=== PATIENT | female | born 1955 | race Caucasian/White ===

== ENCOUNTER 2021-07-10 09:34 | Inpatient (IN) | payer OTHER, SELFPAY ==
[2021-07-10] VITALS (8 sets, daily range): BP systolic 159–182; BP diastolic 71–98; PULSE 98–113; RESP 16–20; TEMP 36.2–38.2; O2SAT 93–99; BMI 45.6
--- NOTE | ~2021-07-10 | US_ITS ---
EXAMINATION: US ABDOMEN LIMITED CLINICAL INFORMATION: Right upper quadrant pain. Elevated white blood cell count.. COMPARISON: CT of the abdomen and pelvis September 2017 TECHNIQUE: Real-time imaging of the right upper quadrant abdominal viscera. Exam is very limited. FINDINGS: PANCREAS: Not well visualized. LIVER: Not well visualized. Liver echotexture is increased. GALLBLADDER: The gallbladder is not well visualized. There are gallstones in the gallbladder. The gallbladder wall appears thickened and edematous measuring up to 1.2 cm. There may be a small amount of pericholecystic fluid. The instructional technologist reports the patient is tender over the gallbladder. COMMON BILE DUCT: Not well visualized. RIGHT KIDNEY: Normal. No hydronephrosis. No renal calculi or focal parenchymal lesions. The kidney measures 10.1 cm in maximum dimension. FREE FLUID: None. US/US abdomen limited IMPRESSION: Very limited exam. Gallstones, thickened edematous gallbladder wall and question pericholecystic fluid. The instructional technologist describes the patient is tender over the gallbladder. Ultrasound appearance is concerning for acute cholecystitis. Echogenic liver.
--- NOTE | ~2021-07-10 | CT_ITS ---
EXAMINATION: CT ABDOMEN AND PELVIS WITH CONTRAST CLINICAL INFORMATION: Obstructive LFTs. COMPARISON: Ultrasound abdomen 07/10/2021 TECHNIQUE: Multidetector volumetric images were obtained from the superior aspect of the liver through the pubic symphysis following administration 85 mL of Omnipaque 350 intravenous contrast. Sagittal and coronal reformatted images were obtained on the technologist's workstation. Oral contrast: No This CT examination was performed using dose optimization techniques as appropriate, variously including the following: *Automated exposure control *Adjustment of mA and/or kV according to patient size (this includes techniques or standardized protocols for targeted exams where dose is matched to indication/reason for exam; i.e. extremities or head) *Use of iterative reconstruction technique DLP: 924 mGy-cm FINDINGS: LUNG BASES: The heart size is normal. The lung bases are clear. LIVER, GALLBLADDER, AND BILIARY TREE: The liver is normal in size, shape, and diffuse hypoattenuation. There is punctate calcification right hepatic lobe axial image 8/3. No focal hepatic lesion or biliary ductal dilatation is present. The gallbladder is distended with with slightly radiopaque structure seen in the dependent portion of gallbladder likely small stones. There is pericholecystic fat stranding, suspicious for acute dilated cystitis. PANCREAS: Unremarkable. SPLEEN: Unremarkable. ADRENAL GLANDS: Unremarkable. KIDNEYS AND URETERS: The kidneys are normal in size, shape, and attenuation. No hydronephrosis, hydroureter, or calculi seen. No perinephric stranding. BLADDER: Unremarkable. GASTROINTESTINAL TRACT: There is scattered stool and gas seen throughout the colon without distention. The small bowel loops are normal caliber. Appendix is not seen well. The stomach is nondistended and appears unremarkable. No free air or free fluid seen. ABDOMINAL WALL: No significant hernia is appreciated. LYMPH NODES: Normal. VASCULAR: Unremarkable. PELVIC VISCERA: There is no free fluid. The uterus is likely surgically absent are not visualized. OSSEOUS STRUCTURES: No lytic or sclerotic process seen. There is mild ventral spondylosis L3-L4, L4-L5 and L5-S1 disc levels. There is moderate ventral spondylosis lower dorsal spine. CT/CT abdomen pelvis w con IMPRESSION: Diffuse hepatic steatosis without focal lesion. There is punctate calcification along the dome of right hepatic lobe. Diffuse gallbladder wall thickening with slight hyperdense dependent gallstones and moderate periapical gallbladder fat stranding suggestive of acute cholecystitis. Recommend clinical correlation. Gallstones were noted on earlier ultrasound 07/10/2021 and acute cholecystitis was suspected.
--- NOTE | ~2021-07-10 | MR_ITS ---
EXAMINATION: MR ABDOMEN WITHOUT CONTRAST CLINICAL INFORMATION: Abnormal liver function tests COMPARISON: None. TECHNIQUE: MR abdomen is performed without gadolinium contrast. MRCP sequences were also performed. FINDINGS: LUNG BASES: The visualized lung bases are unremarkable. LIVER, GALLBLADDER, AND BILIARY TREE: There is fatty infiltration of the liver. No focal liver lesion is seen. The gallbladder is slightly dilated measuring 5 x 5 x 10 cm. There are gallstones. Largest stone measures 2.5 x 3 cm. The gallbladder wall is thickened and edematous. There is a small amount of pericholecystic fluid. There is also fat stranding of the fat surrounding the gallbladder. There is no intra or extrahepatic biliary duct dilatation. The common bile duct measures 4 mm. No common bile duct stone is seen. There may be trace ascites around the liver. PANCREAS: Unremarkable. SPLEEN: Unremarkable. ADRENAL GLANDS: Unremarkable. KIDNEYS AND URETERS: The kidneys are normal in size and shape. No hydronephrosis. No perinephric stranding. GASTROINTESTINAL TRACT: No bowel obstruction. No ascites or fluid collection. ABDOMINAL WALL: No significant hernia is appreciated. LYMPH NODES: No lymphadenopathy. VASCULAR: Unremarkable. OSSEOUS STRUCTURES: There is degenerative disc disease of the lower lumbar spine. Marrow signal is otherwise normal. MR/MR MRCP IMPRESSION: Distended gallbladder and gallstones. Gallbladder wall thickening and edema. Small amount of pericholecystic fluid. Stranding of the fat surrounding the gallbladder. MR appearance suggestive of acute cholecystitis. Normal caliber intrahepatic and extrahepatic bile ducts. No common bile duct stone seen. Fatty infiltration of the liver.
[2021-07-10 10:05] LABS: Basophils Percent Auto 0.1 % (0-2); Hematocrit 47.5 % (37-47); Hemoglobin 16.2 g/dl (12.0-16.0); Imm Gran Abs Auto 0.13 X10*3/uL (0.00-0.03); Imm Gran Pct Auto 0.6 % (0.0-0.4); Lymphocytes Percent Auto 4.7 % (20-40); Mean Corpuscular HGB Conc 34.1 g/dl (31.0-35.0); Mean Corpuscular Hemoglobin 27.3 pg (27.0-33.0); Mean Corpuscular Volume 80.1 fL (80-98); Mean Platelet Volume 9.5 fL (9.4-12.3); Monocytes Absolute Auto 0.9 X10*3/uL (0.1-1.2); Monocytes Percent Auto 4.5 % (2-11); Neutrophils Absolute Auto 18.3 X10*3/uL (2.0-8.3); Neutrophils Percent Auto 90.1 % (45-73); Platelet Count 345 X10*3/uL (160-400); Red Blood Count 5.93 X10*6/uL (4.20-5.50); Red Cell Distribution Width 12.7 % (11.0-16.0); SCAN SMEAR FLAG 1; White Blood Count 20.3 X10*3/uL (4.8-10.8)
[2021-07-10 10:06] LABS: MANUAL DIFF FLAG NO
[2021-07-10 10:18] LABS: Anion Gap 15 (12-20); Blood Urea Nitrogen 9 mg/dL (9-16); Calcium 9.1 mg/dL (8.4-10.2); Carbon Dioxide 25 mmol/L (22-29); Chloride 99 mmol/L (96-108); Creatinine Clr Calc Pharmacy 85.3; Estimated Glomerular Filt Rate > 60; Glucose Random 320 mg/dL (60-115); Sodium 135 mmol/L (135-145)
[2021-07-10 10:19] LABS: Alanine Aminotransferase 48 U/L (0-31); Albumin Level 4.2 g/dL (3.5-5.0); Alkaline Phosphatase 149 U/L (39-117); Aspartate Amino Transferase 31 U/L (5-31); Bilirubin Direct 0.9 mg/dL (0.0-0.5); Lipase 18 U/L (8-78); Total Protein 7.7 g/dL (6.5-8.0)
--- NOTE | 2021-07-10 11:40 | ED.ABDPAIN ---
HPI - Abdominal Pain General Chief Complaint: Abdominal Pain Stated Complaint: abd pain Time Seen by Provider: 07/10/21 11:40 Source: patient Mode of arrival: ambulatory Limitations: no limitations History of Present Illness HPI narrative: After eating pizza on Friday the patient has had umbilical pain. Patient with nausea. No diarrhea. Patient still has her gallbladder, had a hysterectomy many years ago. Patient feels a constant pain. No fever MD elicited complaint: abdominal pain Onset (ago): day(s) Pain Consistency: constant Location: periumbilical Severity: mild Quality: dull Radiation: none Exacerbating factors: nothing Relieving factors: nothing Associated symptoms: nausea Related Data Allergies Allergy/AdvReac Type Severity Reaction Status Date / Time No Known Allergies Allergy Unverified 07/20/20 16:29 [No Known Allergies*] Review of Systems Constitutional: Reports no additional constitutional complaints Eyes: Reports no additional eye complaints Denies dizziness Cardiovascular: Reports no additional cardiovascular complaints Respiratory: Reports as per HPI Gastrointestinal: Reports no additional gastrointestinal complaints Genitourinary: Reports no additional female genitourinary complaints Musculoskeletal: Reports no additional musculoskeletal complaints Skin/Breast: Denies rash Reports system reviewed and no additional complaints, except as documented, Denies dizziness and Denies Sensory deficit (Neuro) Psychiatric: Denies anxiety Physical Exam Vital Signs: Vital Signs: Last Vital Signs Temp 99.4 F 07/10/21 11:52 Pulse 103 H 07/10/21 11:52 Resp 20 07/10/21 11:52 BP 175/98 H 07/10/21 11:52 Pulse Ox 98 07/10/21 11:52 Body Mass Index 45.6 Const: General: healthy appearing Nutritional Appearance: obese Orientation/consciousness: oriented to person and patient oriented x3 Limitations: no limitations HENMT: Head: Yes normal to inspection Ears: external ears normal General nose exam: Normal external nose present Mouth: Normal oral and palatal mucosa present and oropharynx normal Throat: Yes posterior oropharynx normal Eyes: General: appearance normal, both eyes and all related structures Neck: Other: supple Neck: Yes normal visual inspection Chest: Chest palpation & inspection: normal inspection of the chest Resp: Auscultation: clear to auscultation bilaterally Cardio: Jugular venous distension: no JVD Rate: regular rate Rhythm: regular rhythm Heart sounds: S1 normal heart sound present and S2 normal heart sound present GI: Other: lower abdomen scar, right upper quadrant pain with guarding Auscultation: normal bowel sounds : General: Yes no CVA tenderness Back/Spine/Pelvis: Back: no CVA tenderness Skin: General skin exam: no rashes or lesions noted Neuro: General: oriented to person and patient oriented x3 Cranial nerves: Yes CN's II-XII intact bilaterally Motor exam (neuro): 5/5 motor strength present throughout Sensory Exam: No Sensory deficit (Neuro) Extrem: General: Yes normal to inspection Psych: Appearance: grossly normal Course Reevaluation(s) Reevaluation #1: unofficial bedside ultrasound reveals large stone. will obtain US and start abx for cholecystitis. With abnorma LFTs WBC 20 K will start ceftriaxone Time: 11:58 Reevaluation #2: Ultrasound shows acute cholecystitis will consult with Dr. Pan and admit Time: 13:20 MDM - Abdominal Pain Lab Data Result diagrams: 07/10/21 09:55 07/10/21 09:55 Labs: Lab Results 07/10/21 07/10/21 07/10/21 Range/Units 09:55 09:55 09:55 WBC 20.3 H (4.8-10.8) X10*3/uL RBC 5.93 H (4.20-5.50) X10*6/uL Hgb 16.2 H (12.0-16.0) g/dl Hct 47.5 H (37-47) % MCV 80.1 (80-98) fL MCH 27.3 (27.0-33.0) pg MCHC 34.1 (31.0-35.0) g/dl RDW 12.7 (11.0-16.0) % Plt Count 345 (160-400) X10*3/uL MPV 9.5 (9.4-12.3) fL Immature Gran % (Auto) 0.6 H (0.0-0.4) % Neut % (Auto) 90.1 H (45-73) % Lymph % (Auto) 4.7 L (20-40) % [place] % (Auto) 4.5 (2-11) % Eos % (Auto) 0.0 (0-4) % Baso % (Auto) 0.1 (0-2) % Lymph # (Auto) 1.0 L (1.2-4.9) X10*3/uL [place] # (Auto) 0.9 (0.1-1.2) X10*3/uL Eos # (Auto) 0.0 (0.0-0.4) X10*3/uL Baso # (Auto) 0.0 (0.0-0.2) X10*3/uL Abs Immat Gran (auto) 0.13 H (0.00-0.03) X10*3/uL Absolute Neuts (auto) 18.3 H (2.0-8.3) X10*3/uL Absolute Nucleated RBC 0.000 (0.0-0.012) X10*3/uL Nucleated RBC % (auto) 0.0 (0.0-0.2) /100WBC Sodium 135 (135-145) mmol/L Potassium 4.0 (3.3-5.1) mmol/L Chloride 99 (96-108) mmol/L Carbon Dioxide 25 (22-29) mmol/L Anion Gap 15 (12-20) BUN 9 (9-16) mg/dL Creatinine 0.83 (0.5-1.4) mg/dL Estim Creat Clear Calc 85.3 Estimated GFR > 60 Random Glucose 320 H (60-115) mg/dL Lactic Acid (0.5-2.0) mmol/L Calcium 9.1 (8.4-10.2) mg/dL Total Bilirubin 2.0 H (0.0-1.0) mg/dL Direct Bilirubin 0.9 H (0.0-0.5) mg/dL AST 31 (5-31) U/L ALT 48 H (0-31) U/L Alkaline Phosphatase 149 H (39-117) U/L Total Protein 7.7 (6.5-8.0) g/dL Albumin 4.2 (3.5-5.0) g/dL Lipase 18 (8-78) U/L COVID-19 ([facility]) (Negative) COVID-19 Clin Com 07/10/21 07/10/21 Range/Units 12:05 12:54 WBC (4.8-10.8) X10*3/uL RBC (4.20-5.50) X10*6/uL Hgb (12.0-16.0) g/dl Hct (37-47) % MCV (80-98) fL MCH (27.0-33.0) pg MCHC (31.0-35.0) g/dl RDW (11.0-16.0) % Plt Count (160-400) X10*3/uL MPV (9.4-12.3) fL Immature Gran % (Auto) (0.0-0.4) % Neut % (Auto) (45-73) % Lymph % (Auto) (20-40) % [place] % (Auto) (2-11) % Eos % (Auto) (0-4) % Baso % (Auto) (0-2) % Lymph # (Auto) (1.2-4.9) X10*3/uL [place] # (Auto) (0.1-1.2) X10*3/uL Eos # (Auto) (0.0-0.4) X10*3/uL Baso # (Auto) (0.0-0.2) X10*3/uL Abs Immat Gran (auto) (0.00-0.03) X10*3/uL Absolute Neuts (auto) (2.0-8.3) X10*3/uL Absolute Nucleated RBC (0.0-0.012) X10*3/uL Nucleated RBC % (auto) (0.0-0.2) /100WBC Sodium (135-145) mmol/L Potassium (3.3-5.1) mmol/L Chloride (96-108) mmol/L Carbon Dioxide (22-29) mmol/L Anion Gap (12-20) BUN (9-16) mg/dL Creatinine (0.5-1.4) mg/dL Estim Creat Clear Calc Estimated GFR Random Glucose (60-115) mg/dL Lactic Acid 1.6 (0.5-2.0) mmol/L Calcium (8.4-10.2) mg/dL Total Bilirubin (0.0-1.0) mg/dL Direct Bilirubin (0.0-0.5) mg/dL AST (5-31) U/L ALT (0-31) U/L Alkaline Phosphatase (39-117) U/L Total Protein (6.5-8.0) g/dL Albumin (3.5-5.0) g/dL Lipase (8-78) U/L COVID-19 ([facility]) Negative (Negative) COVID-19 Clin Com See Note Discharge Plan Discharge Patient Disposition: Admitted As [facility]patient [facility] Past Medical History Medical History Breast cancer HTN (hypertension) Social History Social History Smoked in Last 30 Days: No Use of substances other than those prescribed or required for medical reasons: No Advance Directives: No Advance Directives Information Provided: No
[2021-07-10] MEDS: 0.9 % Sodium Chloride 1,000 ML 999 ML IVCONT ×2 (12:05→12:46)
[2021-07-10 12:23] LABS: Lactic Acid 1.6 mmol/L (0.5-2.0)
[2021-07-10] MEDS: cefTRIAXone sodium 2 GM in 0.9 % Sodium Chloride 50 ML IV (12:46)
[2021-07-10 13:13] LABS: COVID-19 Test Negative (Negative); IDNOW Serial# 08D9AD1C
[2021-07-10] MEDS: iohexoL 350 MG/ML 100 ML INFUS..BTL 85 ML IV (14:10)
--- NOTE | 2021-07-10 14:50 | PM.HPGS ---
History of Present Illness History of Present Illness Date of Service: 07/12/21 Chief complaint: Acute cholecystitis Narrative: Libertad Chávez is a 66 year old female with morbid obesity, prediabetes, who came to the emergency room today because abdominal pain. She says this started yesterday around 4:30 in the morning which is about 36 hours ago. She describes this mostly in the mid part her abdomen but now, she says she is tender on the right upper quadrant. She says that the pain had been persistent since yesterday showed she decided to come to the emergency room. She denies any fever or chills. She does describe a little bit of nausea today. She denies any vomiting. She does not recall having similar episodes in the past. Her only other main complaint is her chronic knee pain, right more than the left because of her arthritis. She has difficulty walking because of this and uses a cane. Review of Systems Constitutional: Constitutional: Denies chills and Denies fever(s) Cardiovascular: Cardiovascular: Denies chest pain, Denies dyspnea and Denies dyspnea on exertion Respiratory: Respiratory: Denies cough, Denies dyspnea and Denies dyspnea on exertion Gastrointestinal: Gastrointestinal: Denies hematochezia and Denies change in bowel habits Genitourinary: Genitourinary: Denies hematuria Musculoskeletal: Musculoskeletal: Denies back pain and Denies limited range of motion Neurologic: Denies focal weakness and Denies convulsions Psychiatric: Psychiatric: Denies depression and Denies mood swings PMFSH Past Medical History Medical History (Updated 07/10/21 @ 16:51 by Amberly Rodney NP) Breast cancer HTN (hypertension) Surgical History Surgical History (Updated 07/12/21 @ 08:07 by Elma Miramontes PA-C) H/O lumpectomy Social History Social History Household Members: Spouse Housing: House Do you presently have visiting nurse or other home services: No Patient Tobacco Use Status: Never used Tobacco Smoked in Last 30 Days: No Use of substances other than those prescribed or required for medical reasons: No Currently Displaying Signs/Symptoms of Drug Intoxication Withdrawal: No Have you been hit, kicked, punched, or otherwise hurt by someone within the past year? If so, by whom?: No Do you feel safe in your current relationship?: Yes Is there a partner from a previous relationship who is making you feel unsafe now?: No Are you made to feel afraid or neglected: No Are you DNR?: No Advance Directives: No Advance Directives Information Provided: No Do you have thoughts of harming others: None Do you have a plan to hurt others: No Plan Recently lost weight without trying: No Eating poorly because of decreased appetite: No Nutrition Risks: No Nutritional Risk Patient : No : No Poor oral hygiene: No service: No Current occupational status: employed Meds Allergies Allergy/AdvReac Type Severity Reaction Status Date / Time No Known Allergies Allergy Unverified 07/20/20 16:29 [No Known Allergies*] Home Medications Medication Instructions Recorded Confirmed Last Taken Type acetaminophen 325 mg tablet 650 mg PO Q4H PRN 07/10/21 07/10/21 Unknown History anastrozole 1 mg tablet 1 tab PO DAILY 07/10/21 07/10/21 07/09/21 History Physical Exam Vital Signs: Vital Signs: Last Vital Signs Temp 99.0 F 07/10/21 14:14 Pulse 102 H 07/10/21 14:14 Resp 18 07/10/21 14:14 BP 164/78 H 07/10/21 14:14 Pulse Ox 96 07/10/21 14:14 Body Mass Index 45.6 Const: Other: Morbidly obese General: comfortable and no acute distress Orientation/consciousness: patient oriented x3 Neck: Neck: Yes no lymphadenopathy Resp: Auscultation: clear to auscultation bilaterally Cardio: Rhythm: regular rhythm GI: Other: Some tenderness on the right upper quadrant, no guarding or rebound Palpation (GI): Soft to palpation, Tenderness to palpation present (GI) and no guarding Neuro: General: patient oriented x3 Results Results Labs: Short CBC 07/10/21 Range/Units 09:55 WBC 20.3 H (4.8-10.8) X10*3/uL Hgb 16.2 H (12.0-16.0) g/dl Hct 47.5 H (37-47) % Plt Count 345 (160-400) X10*3/uL BMP 07/10/21 09:55 Sodium 135 Potassium 4.0 Chloride 99 Carbon Dioxide 25 BUN 9 Creatinine 0.83 Calcium 9.1 Liver Function 07/10/21 Range/Units 09:55 Total Bilirubin 2.0 H (0.0-1.0) mg/dL Direct Bilirubin 0.9 H (0.0-0.5) mg/dL AST 31 (5-31) U/L ALT 48 H (0-31) U/L Alkaline Phosphatase 149 H (39-117) U/L Albumin 4.2 (3.5-5.0) g/dL Abdomen CT scan report/results: report reviewed and image reviewed CT scan - pelvis: report reviewed and image reviewed Abdominal ultrasound report/results: report reviewed and image reviewed Assessment and Plan (1) Acute cholecystitis: Status: Acute She has tenderness on the right upper quadrant, with imaging study showing acute calculous cholecystitis on both her ultrasound and CAT scan. She has leukocytosis as well. I will start her on IV antibiotics. She will be hydrated as well with IV fluids. I told her that we will plan on doing cholecystectomy. I explained to the technique of laparoscopic cholecystectomy and possible open cholecystectomy. I had a long discussion with her with regards to the risks including but not limited to bleeding, infections, injury to the bowel, liver, bile duct, bile leak, retained stones, as well as the benefits and alternatives. She had does understand that be in view of her comorbidities including obesity, good blood sugars, hypertension, she may have higher perioperative risks than average. We may be able to proceed with cholecystectomy tomorrow. She has elevated glucose and she admits to being a prediabetic. However, she is not on any glucose lowering agents. I am going to consult the hospitalist service in view of her medical problems. Quality Stroke Does the patient have a stroke diagnosis?: No VTE Prior VTE?: No VTE Risk Level:: Medical - moderate - high VTE Device Contraindication: N/A - Device Ordered VTE Drug Contraindication: N/A - Med Ordered Procedures Date of Service Date of Service: 07/10/21
--- NOTE | 2021-07-10 15:18 | P.CONIM_ITS ---
History of Present Illness Data of Consult Service Date: 07/10/21 <Amberly Rodney NP - Last Filed: 07/10/21 16:52> Requesting physician: Ziggy Pan <Amberly Rodney NP - Last Filed: 07/10/21 16:52> Primary Care Provider: Avani Ledesma NP <Amberly Rodney NP - Last Filed: 07/10/21 16:52> HPI Reason for consult: medical management <Amberly Rodney NP - Last Filed: 07/10/21 16:52> 66-year-old female admitted by General surgery due to abdominal pain that started on Friday. She denied nausea, vomiting, diarrhea. She reported a pain in the right upper quadrant. She denied fever, chills. Abdominal and pelvic CT showed diffuse gallbladder with wall thickening with slight hyperdense dependent gallstones. She was admitted by General surgery and is preop for coli cystec kay. Her vital signs are stable though her blood pressure was mildly elevated. White blood cell count elevated at 20.3, hemoglobin 16.2, hematocrit 47.5, bilirubin 2.0, glucose 320. medical consultation was placed for medical management. <Amberly Rodney NP - Last Filed: 07/10/21 16:52> Review of Systems Review of Systems: Denies any recent fever chills or decrease in appetite respiratory denies any shortness of breath coverage production cardiovascular is adjustment of any PND or edema gastrointestinal See HPI genitourinary denies any dysuria frequency or hematuria musculoskeletal denies any joint pain or swelling neuropsych denies any weakness or seizures all other systems reviewed are negative <Amberly Rodney NP - Last Filed: 07/10/21 16:52> [facility] Medical History: Medical History (Updated 07/10/21 @ 16:51 by Amberly Rodney NP) Breast cancer HTN (hypertension) <Amberly Rodney NP - Last Filed: 07/10/21 16:52> Surgical History: Surgical History (Updated 07/10/21 @ 16:14 by Ziggy Pan MD) H/O lumpectomy <Amberly Rodney NP - Last Filed: 07/10/21 16:52> Social History: Social History Household Members: Spouse Housing: House Do you presently have visiting nurse or other home services: No Patient Tobacco Use Status: Never used Tobacco Smoked in Last 30 Days: No Use of substances other than those prescribed or required for medical reasons: No Currently Displaying Signs/Symptoms of Drug Intoxication Withdrawal: No Have you been hit, kicked, punched, or otherwise hurt by someone within the past year? If so, by whom?: No Do you feel safe in your current relationship?: Yes Is there a partner from a previous relationship who is making you feel unsafe now?: No Are you made to feel afraid or neglected: No Are you DNR?: No Advance Directives: No Advance Directives Information Provided: No Do you have thoughts of harming others: None Do you have a plan to hurt others: No Plan Recently lost weight without trying: No Eating poorly because of decreased appetite: No Nutrition Risks: No Nutritional Risk Patient : No : No Poor oral hygiene: No service: No Current occupational status: employed <Amberly Rodney NP - Last Filed: 07/10/21 16:52> Meds Allergies/Adverse reactions: Allergies Allergy/AdvReac Type Severity Reaction Status Date / Time No Known Allergies Allergy Unverified 07/20/20 16:29 [No Known Allergies*] <Amberly Rodney NP - Last Filed: 07/10/21 16:52> Active Medications: Current Medications Generic Name Dose Route Start Last Admin Trade Name Freq PRN Reason Stop Dose Admin Acetaminophen 650 mg 07/10/21 15:00 Acetaminophen Supp 650 Mg Supp.Rect MT Q6H PRN Fever >100.4 Sodium Chloride 1,000 mls @ 100 mls/hr 07/10/21 15:00 Ns IVCONT .Q10H VIVIANE Piperacillin Sod/Tazobactam 50 mls @ 100 mls/hr 07/10/21 15:00 Sod 3.375 gm/ Sodium Chloride IV Q6H VIVIANE Lisinopril 10 mg 07/11/21 09:00 Lisinopril 10 Mg Tablet PO DAILY VIVIANE Protocol Morphine Sulfate 3 mg 07/10/21 15:00 Morphine Sulfate 4 Mg/Ml Cartridge IVPUSH Q4H PRN Pain, Severe (Pain Scale 7-10) Protocol Ondansetron HCl 4 mg 07/10/21 15:05 Ondansetron Hcl 4 Mg/2 Ml Vial IVPUSH Q8H PRN nausea Sodium Chloride 3 ml 07/10/21 16:00 0.9 % Sodium Chloride Flush 3 Ml Syringe IVFLUSH QSSDFT [facility] Sodium Chloride 3 ml 07/10/21 16:00 0.9 % Sodium Chloride Flush 3 Ml Syringe IVFLUSH QSSDFT [facility] <Amberly Rodney NP - Last Filed: 07/10/21 16:52> Home medications: Home Medications Medication Instructions Recorded Confirmed Last Taken Type acetaminophen 325 mg tablet 650 mg PO Q4H PRN 07/10/21 07/10/21 Unknown History anastrozole 1 mg tablet 1 tab PO DAILY 07/10/21 07/10/21 07/09/21 History <Amberly Rodney NP - Last Filed: 07/10/21 16:52> Physical Exam Vital Signs and Narrative: Vital Signs: Last Vital Signs Temp 99.0 F 07/10/21 14:14 Pulse 102 H 07/10/21 14:14 Resp 18 07/10/21 14:14 BP 164/78 H 07/10/21 14:14 Pulse Ox 96 07/10/21 14:14 Body Mass Index 45.6 <Amberly Rodney NP - Last Filed: 07/10/21 16:52> Appearing in no acute distress head is normocephalic atraumatic eyes pupils are PERRLA sclera is anicteric mouth throat mucous membranes are intact and moist neck is supple no lymphadenopathy, no JVD noted lung sounds are clear to auscultation heart regular rate rhythm, clear S1, S2 positive bowel sounds, abdomen is soft, right upper quadrant tenderness neuro patient is alert x3, no focal deficits <Amberly Rodney NP - Last Filed: 07/10/21 16:52> Results Labs CBC and Chem 7: : 07/11/21 06:00 07/11/21 06:00 <Amberly Rodney NP - Last Filed: 07/10/21 16:52> Labs: Laboratory Results - last 24 hr 07/10/21 07/10/21 07/10/21 09:55 09:55 09:55 MCV 80.1 MCH 27.3 MCHC 34.1 RDW 12.7 Plt Count 345 MPV 9.5 Immature Gran % (Auto) 0.6 H Neut % (Auto) 90.1 H Lymph % (Auto) 4.7 L [place] % (Auto) 4.5 Eos % (Auto) 0.0 Baso % (Auto) 0.1 Lymph # (Auto) 1.0 L [place] # (Auto) 0.9 Eos # (Auto) 0.0 Baso # (Auto) 0.0 Abs Immat Gran (auto) 0.13 H Absolute Neuts (auto) 18.3 H Absolute Nucleated RBC 0.000 Nucleated RBC % (auto) 0.0 Anion Gap 15 Estim Creat Clear Calc 85.3 Estimated GFR > 60 Random Glucose 320 H Lactic Acid Calcium 9.1 Total Bilirubin 2.0 H Direct Bilirubin 0.9 H AST 31 ALT 48 H Alkaline Phosphatase 149 H Total Protein 7.7 Albumin 4.2 Lipase 18 COVID-19 ([facility]) COVID-19 Clin Com 07/10/21 07/10/21 12:05 12:54 MCV MCH MCHC RDW Plt Count MPV Immature Gran % (Auto) Neut % (Auto) Lymph % (Auto) [place] % (Auto) Eos % (Auto) Baso % (Auto) Lymph # (Auto) [place] # (Auto) Eos # (Auto) Baso # (Auto) Abs Immat Gran (auto) Absolute Neuts (auto) Absolute Nucleated RBC Nucleated RBC % (auto) Anion Gap Estim Creat Clear Calc Estimated GFR Random Glucose Lactic Acid 1.6 Calcium Total Bilirubin Direct Bilirubin AST ALT Alkaline Phosphatase Total Protein Albumin Lipase COVID-19 ([facility]) Negative COVID-19 Clin Com See Note <Amberly Rodney NP - Last Filed: 07/10/21 16:52> Imaging Radiologist's Impressions: Impressions Abdomen Ultrasound 07/10/21 11:54 IMPRESSION: Very limited exam. Gallstones, thickened edematous gallbladder wall and question pericholecystic fluid. The manufacturing engineering technologist describes the patient is tender over the gallbladder. Ultrasound appearance is concerning for acute cholecystitis. Echogenic liver. Abdomen/Pelvis CT 07/10/21 13:32 IMPRESSION: Diffuse hepatic steatosis without focal lesion. There is punctate calcification along the dome of right hepatic lobe. Diffuse gallbladder wall thickening with slight hyperdense dependent gallstones and moderate periapical gallbladder fat stranding suggestive of acute cholecystitis. Recommend clinical correlation. Gallstones were noted on earlier ultrasound 07/10/2021 and acute cholecystitis was suspected. <Amberly Rodney NP - Last Filed: 07/10/21 16:52> Assessment and Plan (1) Acute cholecystitis: Status: Acute <Amberly Rodney NP - Last Filed: 07/10/21 16:52> 66-year-old woman admitted by General surgery for acute cholec ystitis. Acute cholecystitis. Management per surgical team Pain management Leukocytosis. Secondary to acute cholecystitis On Zosyn Elevated blood sugar reading. Denies history of diabetes. Check A1c Sliding scale Elevated blood pressure, patient reports hypertension Appears to not be taking any medication currently Follow closely may need to add antihypertensive agent if blood pressure remains elevated Elevated hemoglobin and hematocrit. Likely related to dehydration IV fluids Follow CBC DVT prophylaxis with mechanical compression boots Attending Dr. Sanford <Amberly Rodney NP - Last Filed: 07/10/21 16:52>
--- NOTE | 2021-07-10 16:10 | PHA.MEDREC ---
Pharmacy Consult ? Medication Reconciliation Pharmacy has completed the medication reconciliation. spoke with patient in ED
[2021-07-10] MEDS: Piperacillin Sodium/Tazobactam 3.375 GM in 0.9 % Sodium Chloride 50 ML IV ×2 (17:03→20:24)
[2021-07-10] MEDS: 0.9 % Sodium Chloride 1,000 ML 100 ML IVCONT (17:03)
[2021-07-10] MEDS: Acetaminophen 325 MG TABLET 650 MG PO (17:22)
[2021-07-10 17:50] LABS: Glucose, Whole Blood 268 mg/dL (60-115)
[2021-07-10] MEDS: Insulin Lispro 100 UNIT/ML 3 ML VIAL SUBCUT ×2 (18:13→20:23)
--- NOTE | 2021-07-10 18:38 | PM.EVENT ---
Event Note Date of Service: 07/11/21 Event Note: This patient is seen and examined with APC. Patient was admitted for cholecystitis , has sepsis due to cholecystitis Lab imaging, reviewed. Physical exam : Cvs: rrr, [id number] , no murmur res: clear to auscultation ,no rhonchii or wheezing abd: no rebound or guarding ,ruq pain, bs present. ext pulses present , no cyanosis neuro: axo3 , nonfocal. sepsis exam completed. assessment and plan coordinated in APCs note, Agree with the plan in addition: sepsis/cholecystis Continue IV antibiotic, lactic acid normal, blood culture pending. Elevated blood pressure reading continue to monitor-if needed may need antihypertensive medication.
[2021-07-10 20:20] LABS: Glucose, Whole Blood 301 mg/dL (60-115)
[2021-07-11] VITALS (19 sets, daily range): BP systolic 107–202; BP diastolic 65–104; PULSE 92–120; RESP 16–20; TEMP 36.2–37.9; O2SAT 93–100
[2021-07-11] MEDS: hydrALAZINE HCl 20 MG/ML VIAL 5 MG IVPUSH (00:28)
[2021-07-11] MEDS: Piperacillin Sodium/Tazobactam 3.375 GM in 0.9 % Sodium Chloride 50 ML IV ×4 (03:20→21:16)
[2021-07-11 06:14] LABS: Glucose Urine UA 250 MG/DL (NEG); Leukocyte Esterase Urine TRACE (NEG); Nitrite Urine NEG (NEG); Specific Gravity - Urine 1.025 (1.005-1.025); UACC Culture Trigger YES; Urine Blood TRACE (NEG); Urine Ketones 40 MG/DL (NEG); Urine Protein TRACE MG/DL (NEG-TRACE)
[2021-07-11 06:15] LABS: Appearance Urine CLEAR; Color Urine YELLOW
[2021-07-11 06:19] LABS: Bacteria Urine 1+ /LPF; Squamous Epithelial Cell Urine 1+ /LPF
[2021-07-11 06:30] LABS: MANUAL DIFF FLAG NO
[2021-07-11 06:51] LABS: Basophils Percent Auto 0.1 % (0-2); Eosinophils Percent Auto 0.1 % (0-4); Hematocrit 44.2 % (37-47); Hemoglobin 14.9 g/dl (12.0-16.0); Imm Gran Abs Auto 0.15 X10*3/uL (0.00-0.03); Imm Gran Pct Auto 0.8 % (0.0-0.4); Lymphocytes Absolute Auto 1.2 X10*3/uL (1.2-4.9); Lymphocytes Percent Auto 6.2 % (20-40); Mean Corpuscular HGB Conc 33.7 g/dl (31.0-35.0); Mean Corpuscular Hemoglobin 27.2 pg (27.0-33.0); Mean Corpuscular Volume 80.7 fL (80-98); Mean Platelet Volume 9.7 fL (9.4-12.3); Monocytes Absolute Auto 1.2 X10*3/uL (0.1-1.2); Monocytes Percent Auto 6.4 % (2-11); Neutrophils Absolute Auto 16.5 X10*3/uL (2.0-8.3); Neutrophils Percent Auto 86.4 % (45-73); Platelet Count 323 X10*3/uL (160-400); Red Blood Count 5.48 X10*6/uL (4.20-5.50); Red Cell Distribution Width 13.1 % (11.0-16.0); White Blood Count 19.1 X10*3/uL (4.8-10.8)
[2021-07-11 06:52] LABS: Alanine Aminotransferase 85 U/L (0-31); Albumin Level 3.4 g/dL (3.5-5.0); Alkaline Phosphatase 146 U/L (39-117); Anion Gap 16 (12-20); Aspartate Amino Transferase 59 U/L (5-31); Bilirubin Direct 1.4 mg/dL (0.0-0.5); Bilirubin Total 2.6 mg/dL (0.0-1.0); Blood Urea Nitrogen 9 mg/dL (9-16); Calcium 8.6 mg/dL (8.4-10.2); Carbon Dioxide 24 mmol/L (22-29); Chloride 101 mmol/L (96-108); Creatinine Clr Calc Pharmacy 89.6; Estimated Glomerular Filt Rate > 60; Glucose Random 271 mg/dL (60-115); Sodium 137 mmol/L (135-145); Total Protein 6.2 g/dL (6.5-8.0)
[2021-07-11 07:39] LABS: Glucose, Whole Blood 253 mg/dL (60-115)
[2021-07-11 07:48] LABS: Estimated Average Glucose 280 mg/dL; Hemoglobin A1c % 11.4 %
[2021-07-11] MEDS: lisinopriL 10 MG TABLET PO (08:04)
[2021-07-11] MEDS: Insulin Lispro 100 UNIT/ML 3 ML VIAL SUBCUT ×2 (08:05→21:13)
[2021-07-11] MEDS: 0.9 % Sodium Chloride Flush 3 ML SYRINGE IVFLUSH ×3 (08:09→18:17)
--- NOTE | 2021-07-11 08:42 | MHC.CM.PN ---
Pt lives c her spouse in their home. she reports that she is independent in her care. 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 pt's spouse can help her if she needs it and will provide transportation home at dc. she also has a daughter that lives in the area and can help her if needed. pt denies the need for vna at dc. dc plan is home no svcs. cm to cont. to follow.
--- NOTE | 2021-07-11 08:46 | PM.PNGS ---
Subjective Subjective Date of Service: 07/11/21 Interval history: She says that she feels better today although still has some pain Otherwise no events over night Physical Exam Vital Signs: Vital Signs: Last Vital Signs Temp 98.8 F 07/11/21 07:14 Pulse 112 H 07/11/21 08:04 Resp 20 07/11/21 07:14 BP 147/83 H 07/11/21 08:04 Pulse Ox 98 07/11/21 07:14 Body Mass Index 45.6 Laboratory Results WBC 19.1 X10*3/uL (4. 8-10.8) H 07/11/21 06:00 RBC 5.48 X10*6/uL (4. 20-5.50) 07/11/21 06:00 Hgb 14.9 g/dl (12.0-1 6.0) 07/11/21 06:00 Hct 44.2 % (37-47) 07/11/21 06:00 MCV 80.7 fL (80-98) 07/11/21 06:00 MCH 27.2 pg (27.0-33. 0) 07/11/21 06:00 MCHC 33.7 g/dl (31.0-3 5.0) 07/11/21 06:00 RDW 13.1 % (11.0-16.0 ) 07/11/21 06:00 Plt Count 323 X10*3/uL (160 -400) 07/11/21 06:00 MPV 9.7 fL (9.4-12.3) 07/11/21 06:00 Immature Gran % (A uto) 0.8 % (0.0-0.4) H 07/11/21 06:00 Neut % (Auto) 86.4 % (45-73) H 07/11/21 06:00 Lymph % (Auto) 6.2 % (20-40) L 07/11/21 06:00 [place] % (Auto) 6.4 % (2-11) 07/11/21 06:00 Eos % (Auto) 0.1 % (0-4) 07/11/21 06:00 Baso % (Auto) 0.1 % (0-2) 07/11/21 06:00 Lymph # (Auto) 1.2 X10*3/uL (1.2 -4.9) 07/11/21 06:00 [place] # (Auto) 1.2 X10*3/uL (0.1 -1.2) 07/11/21 06:00 Eos # (Auto) 0.0 X10*3/uL (0.0 -0.4) 07/11/21 06:00 Baso # (Auto) 0.0 X10*3/uL (0.0 -0.2) 07/11/21 06:00 Abs Immat Gran (au to) 0.15 X10*3/uL (0. 00-0.03) H 07/11/21 06:00 Absolute Neuts (au to) 16.5 X10*3/uL (2. 0-8.3) H 07/11/21 06:00 Absolute Nucleated RBC 0.000 X10*3/uL (0 .0-0.012) 07/11/21 06:00 Nucleated RBC % (a uto) 0.0 /100WBC (0.0- 0.2) 07/11/21 06:00 Sodium 137 mmol/L (135-1 45) 07/11/21 06:00 Potassium 4.0 mmol/L (3.3-5 .1) 07/11/21 06:00 Chloride 101 mmol/L (96-10 8) 07/11/21 06:00 Carbon Dioxide 24 mmol/L (22-29) 07/11/21 06:00 Anion Gap 16 (12-20) 07/11/21 06:00 BUN 9 mg/dL (9-16) 07/11/21 06:00 Creatinine 0.79 mg/dL (0.5-1 .4) 07/11/21 06:00 Estim Creat Clear Calc 89.6 07/11/21 06:00 Estimated GFR > 60 07/11/21 06:00 POC Glucose 253 mg/dL (60-115 ) H 07/11/21 07:17 Random Glucose 271 mg/dL (60-115 ) H 07/11/21 06:00 Estimat Average Gl ucose 280 mg/dL 07/10/21 09:55 Hemoglobin A1c % 11.4 % 07/10/21 09:55 Lactic Acid 1.6 mmol/L (0.5-2 .0) 07/10/21 12:05 Calcium 8.6 mg/dL (8.4-10 .2) 07/11/21 06:00 Total Bilirubin 2.6 mg/dL (0.0-1. 0) H 07/11/21 06:00 Direct Bilirubin 1.4 mg/dL (0.0-0. 5) H 07/11/21 06:00 AST 59 U/L (5-31) H 07/11/21 06:00 ALT 85 U/L (0-31) H 07/11/21 06:00 Alkaline Phosphata se 146 U/L (39-117) H 07/11/21 06:00 Total Protein 6.2 g/dL (6.5-8.0 ) L 07/11/21 06:00 Albumin 3.4 g/dL (3.5-5.0 ) L 07/11/21 06:00 Lipase 18 U/L (8-78) 07/10/21 09:55 Urine Color YELLOW 07/11/21 05:52 Urine Appearance CLEAR 07/11/21 05:52 Urine pH 6.0 (5.0-8.0) 07/11/21 05:52 Ur Specific Gravit y 1.025 (1.005-1.0 25) 07/11/21 05:52 Urine Protein TRACE MG/DL (NEG- TRACE) 07/11/21 05:52 Urine Glucose (UA) 250 MG/DL (NEG) H 07/11/21 05:52 Urine Ketones 40 MG/DL (NEG) 07/11/21 05:52 Urine Blood TRACE (NEG) 07/11/21 05:52 Urine Nitrite NEG (NEG) 07/11/21 05:52 Ur Leukocyte [place] TRACE (NEG) H 07/11/21 05:52 Urine RBC 1-4 /HPF (0) 07/11/21 05:52 Urine WBC 10-14 /HPF (0-4) H 07/11/21 05:52 Ur Squamous Epith Cells 1+ /LPF 07/11/21 05:52 Urine Bacteria 1+ /LPF 07/11/21 05:52 COVID-19 ([facility]ITO) Negative (Negati ve) 07/10/21 12:54 COVID-19 Clin Com See Note 07/10/21 12:54 Impressions Abdomen Ultrasound 07/10/21 11:54 IMPRESSION: Very limited exam. Gallstones, thickened edematous gallbladder wall and question pericholecystic fluid. The cardiac cath lab technologist describes the patient is tender over the gallbladder. Ultrasound appearance is concerning for acute cholecystitis. Echogenic liver. Abdomen/Pelvis CT 07/10/21 13:32 IMPRESSION: Diffuse hepatic steatosis without focal lesion. There is punctate calcification along the dome of right hepatic lobe. Diffuse gallbladder wall thickening with slight hyperdense dependent gallstones and moderate periapical gallbladder fat stranding suggestive of acute cholecystitis. Recommend clinical correlation. Gallstones were noted on earlier ultrasound 07/10/2021 and acute cholecystitis was suspected. Const: Other: Appears obese General: comfortable and no acute distress Resp: Effort & Inspection: normal respiratory effort Cardio: Rate: tachycardic GI: Other: Soft mild tenderness on the right upper quadrant no rebound or guarding Procedures Date of Service Date of Service: 07/11/21 Progress Note: A&P Assessment and plan (1) Acute cholecystitis: Status: Acute Assessment and Plan: Subjectively says she is better although with some pain still White count down a little bit Bilirubin elevated Will check MRI to rule out CBD stone Lactate was normal but will repeat in view of white count, tachycardia Otherwise looks comfortable Plan is laparoscopic cholecystectomy - she understands the technique of the procedure. I had long discussion with her about the risks, benefits, and alternatives. Fall Risk Details Current Medications: Current Medications Generic Name Dose Route Start Last Admin Trade Name Freq PRN Reason Stop Dose Admin Acetaminophen 650 mg 07/10/21 17:16 07/10/21 17:22 Acetaminophen 325 Mg Tablet PO 650 mg Q6H PRN Administration Fever >100.4 Dextrose 25 gm 07/10/21 15:40 Dextrose 50 % 25 Gm/50 Ml Vial IVPUSH Q15M PRN per Hypoglycemia Standing Ord. Protocol Glucose 15 gm 07/10/21 15:40 Glucose Gel 15 Gm Gel..Gram. PO Q15M PRN per Hypoglycemia Standing Ord. Protocol Sodium Chloride 1,000 mls @ 100 mls/hr 07/10/21 15:00 07/11/21 05:23 Ns IVCONT Infused .Q10H VIVIANE Infusion Piperacillin Sod/Tazobactam 50 mls @ 100 mls/hr 07/10/21 15:00 07/11/21 08:05 Sod 3.375 gm/ Sodium Chloride IV 100 mls/hr Q6H VIVIANE Administration Insulin Human Lispro 0 unit 07/10/21 16:30 07/11/21 08:05 Insulin Lispro 100 Unit/Ml 3 Ml Vial SUBCUT 6 unit QIDACHS VIVIANE Administration Protocol Lisinopril 10 mg 07/11/21 09:00 07/11/21 08:04 Lisinopril 10 Mg Tablet PO 10 mg DAILY VIVIANE Administration Protocol Morphine Sulfate 3 mg 07/10/21 15:00 Morphine Sulfate 4 Mg/Ml Cartridge IVPUSH Q4H PRN Pain, Severe (Pain Scale 7-10) Protocol Ondansetron HCl 4 mg 07/10/21 15:05 Ondansetron Hcl 4 Mg/2 Ml Vial IVPUSH Q8H PRN nausea Pharmacy Consult 1 each 07/10/21 15:44 Consult Rx Perform Med Rec MISCELLANE ONCE PRN Consult order Sodium Chloride 3 ml 07/10/21 16:00 07/11/21 08:36 0.9 % Sodium Chloride Flush 3 Ml Syringe IVFLUSH 3 ml QSHIFT [facility] Administration Sodium Chloride 3 ml 07/10/21 16:00 07/11/21 01:12 0.9 % Sodium Chloride Flush 3 Ml Syringe IVFLUSH Not Given QSHIFT [facility] Time Spent With Patient Time: Total time spent is greater than 50% in coordination of care (as documented) at patient's floor/unit and/or counseling patient: Time with patient: 25 - 35 minutes Quality Stroke Does the patient have a stroke diagnosis?: No VTE Prior VTE?: No VTE Risk Level:: Medical - moderate - high VTE Device Contraindication: N/A - Device Ordered VTE Drug Contraindication: N/A - Med Ordered
[2021-07-11 09:21] LABS: Lactic Acid 1.4 mmol/L (0.5-2.0)
--- NOTE | 2021-07-11 09:49 | P.CDIC_ITS ---
CDI Concurrent Query Service Date: 07/11/21 Documentation Clarification: Please clarify if you are treating a proba ble/suspected/likely or confirmed: Consistency of documentation within the medical record: Sepsis due to acute cholecystitis POA, treating, rule out Acute cholecystitis Other please specify if known or undetermined PLEASE DO NOT DELETE/MODIFY EXISTING CONTENT Additional information is needed in order to code to the highest accuracy and appropriate Severity of Illness (SOI). Please clarify the information noted below in your progress notes and discharge summary. Risk Factors/Clinical Indicators/Treatments Event note 07/10 - patient was admitted for cholecystitis has Sepsis due to the cholecystitis. WBC 20.3 Temp 98/100.7 IV antibiotics, IV Fluids Plan for Lap Cholecystectomy. CDS: Annie Carlson CCS, CDIS Contact Number: [phone] Please Review the information above and exercise your independent professional judgment in responding to the query. If you concur, pleas document in the PROGRESS NOTES and DISCHARGE SUMMARY. If you do not agree with the query, please document in the query above. THIS QUERY IS PART OF THE PERMANENT MEDICAL RECORD
--- NOTE | 2021-07-11 11:09 | HO.PM.IMPN ---
Subjective Subjective Date of Service: 07/11/21 Interval History: Sepsis/acute cholecystitis Review of Systems Patient says abdominal pain slightly better than before . Denies any new complaint of chest pain or shortness of breath or fever or chills or nausea or vomiting Denies any cough Denies any weakness or numbness. Physical Exam Vital Signs: Vital Signs: Last Vital Signs Temp 98.9 F 07/11/21 11:02 Pulse 117 H 07/11/21 11:02 Resp 18 07/11/21 11:02 BP 141/91 H 07/11/21 11:02 Pulse Ox 95 07/11/21 11:02 Body Mass Index 45.6 Physical exam: Constitutional: Not in acute distress but has abdominal discomfort. Cvs: rrr, [id number] , no murmur res: clear to auscultation ,no rhonchii or wheezing abd: no rebound or guarding ,ruq pain, bs present. ext pulses present , no cyanosis neuro: axo3 , nonfocal. Objective Data Active Medications Acetaminophen (Acetaminophen 325 Mg Tablet) 650 mg PO Q6H PRN PRN Reason: Fever >100.4 Last Admin: 07/10/21 17:22 Dose: 650 mg Documented by: MILLEROPEChelsea Dextrose (Dextrose 50 % 25 Gm/50 Ml Vial) 25 gm IVPUSH Q15M PRN; Protocol PRN Reason: per Hypoglycemia Standing Ord. Glucose (Glucose Gel 15 Gm Gel..Gram.) 15 gm PO Q15M PRN; Protocol PRN Reason: per Hypoglycemia Standing Ord. Sodium Chloride (Ns) 1,000 mls @ 100 mls/hr IVCONT .Q10H [facility] Last Infusion: 07/11/21 05:23 Dose: 0 mls/hr Documented by: PAVITHRA Piperacillin Sod/Tazobactam (Sod 3.375 gm/ Sodium Chloride) 50 mls @ 100 mls/hr IV Q6H [facility] Last Infusion: 07/11/21 09:32 Dose: 100 mls/hr Documented by: MAEVE Insulin Human Lispro (Insulin Lispro 100 Unit/Ml 3 Ml Vial) 0 unit SUBCUT QIDACHS [facility]; Protocol Last Admin: 07/11/21 08:05 Dose: 6 unit Documented by: ACOSTA Lisinopril (Lisinopril 10 Mg Tablet) 10 mg PO DAILY [facility]; Protocol Last Admin: 07/11/21 08:04 Dose: 10 mg Documented by: ACOSTA Morphine Sulfate (Morphine Sulfate 4 Mg/Ml Cartridge) 3 mg IVPUSH Q4H PRN; Protocol PRN Reason: Pain, Severe (Pain Scale 7-10) Ondansetron HCl (Ondansetron Hcl 4 Mg/2 Ml Vial) 4 mg IVPUSH Q8H PRN PRN Reason: nausea Pharmacy Consult (Consult Rx Perform Med Rec) 1 each MISCELLANE ONCE PRN PRN Reason: Consult order Sodium Chloride (0.9 % Sodium Chloride Flush 3 Ml Syringe) 3 ml IVFLUSH QSMSFT [facility] Last Admin: 07/11/21 08:36 Dose: 3 ml Documented by: ACOSTA Sodium Chloride (0.9 % Sodium Chloride Flush 3 Ml Syringe) [facility] Last Admin: 07/11/21 09:32 Dose: Not Given Documented by: MAEVE Non-Admin Reason: IV Running Labs CBC & Chem 7: 07/11/21 06:00 07/11/21 06:00 Labs: Laboratory Results - last 24 hr 07/10/21 07/10/21 07/10/21 09:55 12:05 12:54 MCV MCH MCHC RDW Plt Count MPV Immature Gran % (Auto) Neut % (Auto) Lymph % (Auto) [place] % (Auto) Eos % (Auto) Baso % (Auto) Lymph # (Auto) [place] # (Auto) Eos # (Auto) Baso # (Auto) Abs Immat Gran (auto) Absolute Neuts (auto) Absolute Nucleated RBC Nucleated RBC % (auto) Anion Gap Estim Creat Clear Calc Estimated GFR POC Glucose Random Glucose Estimat Average Glucose 280 Hemoglobin A1c % 11.4 Lactic Acid 1.6 Calcium Total Bilirubin Direct Bilirubin AST ALT Alkaline Phosphatase Total Protein Albumin Urine Color Urine Appearance Urine pH Ur Specific [place] Urine Protein Urine Glucose (UA) Urine Ketones Urine Blood Urine Nitrite Ur Leukocyte Esterase Urine RBC Urine WBC Ur Squamous Epith Cells Urine Bacteria COVID-19 ([facility]) Negative COVID-19 Clin Com See Note 07/10/21 07/10/21 07/11/21 17:45 20:15 05:52 MCV MCH MCHC RDW Plt Count MPV Immature Gran % (Auto) Neut % (Auto) Lymph % (Auto) [place] % (Auto) Eos % (Auto) Baso % (Auto) Lymph # (Auto) [place] # (Auto) Eos # (Auto) Baso # (Auto) Abs Immat Gran (auto) Absolute Neuts (auto) Absolute Nucleated RBC Nucleated RBC % (auto) Anion Gap Estim Creat Clear Calc Estimated GFR POC Glucose 268 H 301 H Random Glucose Estimat Average Glucose Hemoglobin A1c % Lactic Acid Calcium Total Bilirubin Direct Bilirubin AST ALT Alkaline Phosphatase Total Protein Albumin Urine Color YELLOW Urine Appearance CLEAR Urine pH 6.0 Ur Specific [place] 1.025 Urine Protein TRACE Urine Glucose (UA) 250 H Urine Ketones 40 Urine Blood TRACE Urine Nitrite NEG Ur Leukocyte Esterase TRACE H Urine RBC 1-4 Urine WBC 10-14 H Ur Squamous Epith Cells 1+ Urine Bacteria 1+ COVID-19 ([facility]) COVID-19 Vivastream 07/11/21 07/11/21 07/11/21 06:00 06:00 07:17 MCV 80.7 MCH 27.2 MCHC 33.7 RDW 13.1 Plt Count 323 MPV 9.7 Immature Gran % (Auto) 0.8 H Neut % (Auto) 86.4 H Lymph % (Auto) 6.2 L [place] % (Auto) 6.4 Eos % (Auto) 0.1 Baso % (Auto) 0.1 Lymph # (Auto) 1.2 [place] # (Auto) 1.2 Eos # (Auto) 0.0 Baso # (Auto) 0.0 Abs Immat Gran (auto) 0.15 H Absolute Neuts (auto) 16.5 H Absolute Nucleated RBC 0.000 Nucleated RBC % (auto) 0.0 Anion Gap 16 Estim Creat Clear Calc 89.6 Estimated GFR > 60 POC Glucose 253 H Random Glucose 271 H Estimat Average Glucose Hemoglobin A1c % Lactic Acid Calcium 8.6 Total Bilirubin 2.6 H Direct Bilirubin 1.4 H AST 59 H ALT 85 H Alkaline Phosphatase 146 H Total Protein 6.2 L Albumin 3.4 L Urine Color Urine Appearance Urine pH Ur Specific [place] Urine Protein Urine Glucose (UA) Urine Ketones Urine Blood Urine Nitrite Ur Leukocyte Esterase Urine RBC Urine WBC Ur Squamous Epith Cells Urine Bacteria COVID-19 ([facility]ITO) COVID-19 [facility] Com 07/11/21 08:26 MCV MCH MCHC RDW Plt Count MPV Immature Gran % (Auto) Neut % (Auto) Lymph % (Auto) [place] % (Auto) Eos % (Auto) Baso % (Auto) Lymph # (Auto) [place] # (Auto) Eos # (Auto) Baso # (Auto) Abs Immat Gran (auto) Absolute Neuts (auto) Absolute Nucleated RBC Nucleated RBC % (auto) Anion Gap Estim Creat Clear Calc Estimated GFR POC Glucose Random Glucose Estimat Average Glucose Hemoglobin A1c % Lactic Acid 1.4 Calcium Total Bilirubin Direct Bilirubin AST ALT Alkaline Phosphatase Total Protein Albumin Urine Color Urine Appearance Urine pH Ur Specific [place] Urine Protein Urine Glucose (UA) Urine Ketones Urine Blood Urine Nitrite Ur Leukocyte Esterase Urine RBC Urine WBC Ur Squamous Epith Cells Urine Bacteria COVID-19 ([facility]) COVID-19 Clin Com Assessment and Plan (1) Acute cholecystitis: Status: Acute (2) Leukocytosis (leucocytosis): Status: Acute (3) Elevated blood sugar: Status: Acute (4) Elevated blood pressure reading: Status: Acute Quality VTE VTE Risk Level:: Medical - moderate - high VTE Device Contraindication: N/A - Device Ordered VTE Drug Contraindication: N/A - Med Ordered
--- NOTE | 2021-07-11 11:15 | PM.EVENT ---
Event Note Date of Service: 07/11/21 Event Note: MRCP reviewed- no signs of any CBD stone or CBD obstruction Abnormal LFTs likely due to inflammatory changes of the gallbladder. Will proceed with a cholecystectomy, possible open cholecystectomy Patient aware and understands the technique of the procedure as well as the risks, benefits, and alternatives. She has given consent She meets criteria for sepsis with elevated heart rate, elevated WBC Lactate normal
[2021-07-11 11:17] LABS: Glucose, Whole Blood 221 mg/dL (60-115)
--- NOTE | 2021-07-11 11:32 | HO.ANESPROP2 ---
[facility] Active Problems Active Problems: All Active Problems (Updated 07/10/21 @ 16:51 by Amberly Rodney NP) Elevated blood sugar (Acute) Elevated blood pressure reading (Acute) Leukocytosis (leucocytosis) (Acute) H/O lumpectomy (Acute) Acute cholecystitis (Acute) Past Medical History Medical History (Updated 07/10/21 @ 16:51 by Amberly Rodney NP) Breast cancer HTN (hypertension) Surgical History Surgical History (Updated 07/10/21 @ 16:14 by Ziggy Pan MD) H/O lumpectomy Social History Social History Household Members: Spouse Housing: House Do you presently have visiting nurse or other home services: No Patient Tobacco Use Status: Never used Tobacco Smoked in Last 30 Days: No Use of substances other than those prescribed or required for medical reasons: No Currently Displaying Signs/Symptoms of Drug Intoxication Withdrawal: No Have you been hit, kicked, punched, or otherwise hurt by someone within the past year? If so, by whom?: No Do you feel safe in your current relationship?: Yes Is there a partner from a previous relationship who is making you feel unsafe now?: No Are you made to feel afraid or neglected: No Are you DNR?: No Advance Directives: No Advance Directives Information Provided: No Do you have thoughts of harming others: None Do you have a plan to hurt others: No Plan Recently lost weight without trying: No Eating poorly because of decreased appetite: No Nutrition Risks: No Nutritional Risk Patient : No : No Poor oral hygiene: No service: No Current occupational status: employed Meds Allergies Allergy/AdvReac Type Severity Reaction Status Date / Time No Known Allergies Allergy Unverified 07/20/20 16:29 [No Known Allergies*] Active Medications: Current Medications Generic Name Dose Route Start Last Admin Trade Name Freq PRN Reason Stop Dose Admin Acetaminophen 650 mg 07/10/21 17:16 07/10/21 17:22 Acetaminophen 325 Mg Tablet PO 650 mg Q6H PRN Administration Fever >100.4 Dextrose 25 gm 07/10/21 15:40 Dextrose 50 % 25 Gm/50 Ml Vial IVPUSH Q15M PRN per Hypoglycemia Standing Ord. Protocol Glucose 15 gm 07/10/21 15:40 Glucose Gel 15 Gm Gel..Gram. PO Q15M PRN per Hypoglycemia Standing Ord. Protocol Sodium Chloride 1,000 mls @ 100 mls/hr 07/10/21 15:00 07/11/21 05:23 Ns IVCONT Infused .Q10H [facility] Infusion Piperacillin Sod/Tazobactam 50 mls @ 100 mls/hr 07/10/21 15:00 07/11/21 09:32 Sod 3.375 gm/ Sodium Chloride IV Infused Q6H [facility] Infusion Insulin Human Lispro 0 unit 07/10/21 16:30 07/11/21 08:05 Insulin Lispro 100 Unit/Ml 3 Ml Vial SUBCUT 6 unit QIDACHS [facility] Administration Protocol Lisinopril 10 mg 07/11/21 09:00 07/11/21 08:04 Lisinopril 10 Mg Tablet PO 10 mg DAILY [facility] Administration Protocol Morphine Sulfate 3 mg 07/10/21 15:00 Morphine Sulfate 4 Mg/Ml Cartridge IVPUSH Q4H PRN Pain, Severe (Pain Scale 7-10) Protocol Ondansetron HCl 4 mg 07/10/21 15:05 Ondansetron Hcl 4 Mg/2 Ml Vial IVPUSH Q8H PRN nausea Pharmacy Consult 1 each 07/10/21 15:44 Consult Rx Perform Med Rec MISCELLANE ONCE PRN Consult order Sodium Chloride 3 ml 07/10/21 16:00 07/11/21 08:36 0.9 % Sodium Chloride Flush 3 Ml Syringe [facility] Administration Sodium Chloride 3 ml 07/10/21 16:00 07/11/21 09:32 0.9 % Sodium Chloride Flush 3 Ml Syringe IVFLUSH Not Given [facility] Home Medications Medication Instructions Recorded Confirmed Last Taken Type acetaminophen 325 mg tablet 650 mg PO Q4H PRN 07/10/21 07/10/21 Unknown History anastrozole 1 mg tablet 1 tab PO DAILY 07/10/21 07/10/21 07/09/21 History Exam Exam Date and Time: July 11, 2021 1132 Height,Weight and Vital Signs: Height 5 ft 4 in Weight 120.656 kg Last Vital Signs Temp 98.9 F 07/11/21 11:02 Pulse 117 H 07/11/21 11:02 Resp 18 07/11/21 11:02 BP 141/91 H 07/11/21 11:02 Pulse Ox 95 07/11/21 11:02 Pertinent Lab Results Pertinent Lab Results: Laboratory Tests 07/10/21 07/10/21 07/10/21 09:55 09:55 09:55 WBC 20.3 H RBC 5.93 H Hgb 16.2 H Hct 47.5 H MCV 80.1 MCH 27.3 MCHC 34.1 RDW 12.7 Plt Count 345 MPV 9.5 Immature Gran % (Auto) 0.6 H Neut % (Auto) 90.1 H Lymph % (Auto) 4.7 L [place] % (Auto) 4.5 Eos % (Auto) 0.0 Baso % (Auto) 0.1 Lymph # (Auto) 1.0 L [place] # (Auto) 0.9 Eos # (Auto) 0.0 Baso # (Auto) 0.0 Abs Immat Gran (auto) 0.13 H Absolute Neuts (auto) 18.3 H Absolute Nucleated RBC 0.000 Nucleated RBC % (auto) 0.0 Sodium 135 Potassium 4.0 Chloride 99 Carbon Dioxide 25 Anion Gap 15 BUN 9 Creatinine 0.83 Estim Creat Clear Calc 85.3 Estimated GFR > 60 POC Glucose Random Glucose 320 H Estimat Average Glucose Hemoglobin A1c % Lactic Acid Calcium 9.1 Total Bilirubin 2.0 H Direct Bilirubin 0.9 H AST 31 ALT 48 H Alkaline Phosphatase 149 H Total Protein 7.7 Albumin 4.2 Lipase 18 Urine Color Urine Appearance Urine pH Ur Specific [place] Urine Protein Urine Glucose (UA) Urine Ketones Urine Blood Urine Nitrite Ur Leukocyte Esterase Urine RBC Urine WBC Ur Squamous Epith Cells Urine Bacteria COVID-19 ([facility]) COVID-19 Clin Com 07/10/21 07/10/21 07/10/21 09:55 12:05 12:54 WBC RBC Hgb Hct MCV MCH MCHC RDW Plt Count MPV Immature Gran % (Auto) Neut % (Auto) Lymph % (Auto) [place] % (Auto) Eos % (Auto) Baso % (Auto) Lymph # (Auto) [place] # (Auto) Eos # (Auto) Baso # (Auto) Abs Immat Gran (auto) Absolute Neuts (auto) Absolute Nucleated RBC Nucleated RBC % (auto) Sodium Potassium Chloride Carbon Dioxide Anion Gap BUN Creatinine Estim Creat Clear Calc Estimated GFR POC Glucose Random Glucose Estimat Average Glucose 280 Hemoglobin A1c % 11.4 Lactic Acid 1.6 Calcium Total Bilirubin Direct Bilirubin AST ALT Alkaline Phosphatase Total Protein Albumin Lipase Urine Color Urine Appearance Urine pH Ur Specific [place] Urine Protein Urine Glucose (UA) Urine Ketones Urine Blood Urine Nitrite Ur Leukocyte Esterase Urine RBC Urine WBC Ur Squamous Epith Cells Urine Bacteria COVID-19 ([facility]) Negative COVID-19 Clin Com See Note 07/10/21 07/10/21 07/11/21 17:45 20:15 05:52 WBC RBC Hgb Hct MCV MCH MCHC RDW Plt Count MPV Immature Gran % (Auto) Neut % (Auto) Lymph % (Auto) [place] % (Auto) Eos % (Auto) Baso % (Auto) Lymph # (Auto) [place] # (Auto) Eos # (Auto) Baso # (Auto) Abs Immat Gran (auto) Absolute Neuts (auto) Absolute Nucleated RBC Nucleated RBC % (auto) Sodium Potassium Chloride Carbon Dioxide Anion Gap BUN Creatinine Estim Creat Clear Calc Estimated GFR POC Glucose 268 H 301 H Random Glucose Estimat Average Glucose Hemoglobin A1c % Lactic Acid Calcium Total Bilirubin Direct Bilirubin AST ALT Alkaline Phosphatase Total Protein Albumin Lipase Urine Color YELLOW Urine Appearance CLEAR Urine pH 6.0 Ur Specific [place] 1.025 Urine Protein TRACE Urine Glucose (UA) 250 H Urine Ketones 40 Urine Blood TRACE Urine Nitrite NEG Ur Leukocyte Esterase TRACE H Urine RBC 1-4 Urine WBC 10-14 H Ur Squamous Epith Cells 1+ Urine Bacteria 1+ COVID-19 ([facility]) COVID-19 Clin Com 07/11/21 07/11/21 07/11/21 06:00 06:00 07:17 WBC 19.1 H RBC 5.48 Hgb 14.9 Hct 44.2 MCV 80.7 MCH 27.2 MCHC 33.7 RDW 13.1 Plt Count 323 MPV 9.7 Immature Gran % (Auto) 0.8 H Neut % (Auto) 86.4 H Lymph % (Auto) 6.2 L [place] % (Auto) 6.4 Eos % (Auto) 0.1 Baso % (Auto) 0.1 Lymph # (Auto) 1.2 [place] # (Auto) 1.2 Eos # (Auto) 0.0 Baso # (Auto) 0.0 Abs Immat Gran (auto) 0.15 H Absolute Neuts (auto) 16.5 H Absolute Nucleated RBC 0.000 Nucleated RBC % (auto) 0.0 Sodium 137 Potassium 4.0 Chloride 101 Carbon Dioxide 24 Anion Gap 16 BUN 9 Creatinine 0.79 Estim Creat Clear Calc 89.6 Estimated GFR > 60 POC Glucose 253 H Random Glucose 271 H Estimat Average Glucose Hemoglobin A1c % Lactic Acid Calcium 8.6 Total Bilirubin 2.6 H Direct Bilirubin 1.4 H AST 59 H ALT 85 H Alkaline Phosphatase 146 H Total Protein 6.2 L Albumin 3.4 L Lipase Urine Color Urine Appearance Urine pH Ur Specific [place] Urine Protein Urine Glucose (UA) Urine Ketones Urine Blood Urine Nitrite Ur Leukocyte Esterase Urine RBC Urine WBC Ur Squamous Epith Cells Urine Bacteria COVID-19 ([facility]) COVID-19 Clin Com 07/11/21 07/11/21 08:26 11:13 WBC RBC Hgb Hct MCV MCH MCHC RDW Plt Count MPV Immature Gran % (Auto) Neut % (Auto) Lymph % (Auto) [place] % (Auto) Eos % (Auto) Baso % (Auto) Lymph # (Auto) [place] # (Auto) Eos # (Auto) Baso # (Auto) Abs Immat Gran (auto) Absolute Neuts (auto) Absolute Nucleated RBC Nucleated RBC % (auto) Sodium Potassium Chloride Carbon Dioxide Anion Gap BUN Creatinine Estim Creat Clear Calc Estimated GFR POC Glucose 221 H Random Glucose Estimat Average Glucose Hemoglobin A1c % Lactic Acid 1.4 Calcium Total Bilirubin Direct Bilirubin AST ALT Alkaline Phosphatase Total Protein Albumin Lipase Urine Color Urine Appearance Urine pH Ur Specific [place] Urine Protein Urine Glucose (UA) Urine Ketones Urine Blood Urine Nitrite Ur Leukocyte Esterase Urine RBC Urine WBC Ur Squamous Epith Cells Urine Bacteria COVID-19 ([facility]) COVID-19 Clin Com Airway Mallampati Class: III TM Dist: >3cm Partial: Upper and Lower
--- NOTE | 2021-07-11 13:17 | P.PNIM_ITS ---
Subjective Subjective Date of Service: 07/11/21 Interval History: the patient was seen and evaluated this morning Laying in bed, complaining of pain in right upper quadrant of her abdomen Denies any fever, chills or shortness of breath No reported other overnight events. Systemic review: No fever, chills but complaining of pain No chest pain, palpitation No shortness of breath or coughing Right upper quadrant pain with associated nausea No urinary symptoms No any rash or wounds Physical Exam Vital Signs: Vital Signs: Last Vital Signs Temp 98.9 F 07/11/21 11:02 Pulse 117 H 07/11/21 11:02 Resp 18 07/11/21 11:02 BP 141/91 H 07/11/21 11:02 Pulse Ox 95 07/11/21 11:02 Body Mass Index 45.6 Const: Other: Constitutional : Alert, oriented, obese Neck : Normal inspection, Supple Cardiovascular : RRR, S1 S2, no lower extremity edema Respiratory : Good bilateral air entry, no crackles, wheezes or rhonchi Gastrointestinal: soft, lax, decrease bowel sounds, right upper quadrant tenderness Skin : Warm, Dry Neurological : Alert & oriented x3, No focal deficit Objective Data Active Medications Acetaminophen (Acetaminophen 325 Mg Tablet) 650 mg PO Q6H PRN PRN Reason: Fever >100.4 Last Admin: 07/10/21 17:22 Dose: 650 mg Documented by: PARVIN Dextrose (Dextrose 50 % 25 Gm/50 Ml Vial) 25 gm IVPUSH Q15M PRN; Protocol PRN Reason: per Hypoglycemia Standing Ord. Fentanyl (Fentanyl Citrate/Pf 100 Mcg/2 Ml Vial) 50 mcg IVPUSH Q5M PRN; Protocol PRN Reason: Pain, Severe (Pain Scale 7-10) Glucose (Glucose Gel 15 Gm Gel..Gram.) 15 gm PO Q15M PRN; Protocol PRN Reason: per Hypoglycemia Standing Ord. Sodium Chloride (Ns) 1,000 mls @ 100 mls/hr IVCONT .Q10H [facility] Last Infusion: 07/11/21 05:23 Dose: 0 mls/hr Documented by: PAVITHAR Piperacillin Sod/Tazobactam (Sod 3.375 gm/ Sodium Chloride) 50 mls @ 100 mls/hr IV Q6H [facility] Last Infusion: 07/11/21 09:32 Dose: 100 mls/hr Documented by: MAEVE Lactated Ringer's (Lr) 1,000 mls @ 100 mls/hr IVCONT .Q10H [facility] Insulin Human Lispro (Insulin Lispro 100 Unit/Ml 3 Ml Vial) 0 unit SUBCUT QIDACHS [facility]; Protocol Last Admin: 07/11/21 08:05 Dose: 6 unit Documented by: ACOSTA Lisinopril (Lisinopril 10 Mg Tablet) 10 mg PO DAILY [facility]; Protocol Last Admin: 07/11/21 08:04 Dose: 10 mg Documented by: ACOSTA Morphine Sulfate (Morphine Sulfate 4 Mg/Ml Cartridge) 3 mg IVPUSH Q4H PRN; Protocol PRN Reason: Pain, Severe (Pain Scale 7-10) Ondansetron HCl (Ondansetron Hcl 4 Mg/2 Ml Vial) 4 mg IVPUSH Q8H PRN PRN Reason: nausea Ondansetron HCl (Ondansetron Hcl 4 Mg/2 Ml Vial) 4 mg IVPUSH ONCE PRN PRN Reason: Nausea and Vomiting Pharmacy Consult (Consult Rx Perform Med Rec) 1 each MISCELLANE ONCE PRN PRN Reason: Consult order Sodium Chloride (0.9 % Sodium Chloride Flush 3 Ml Syringe) 3 ml IVFLUSH [facility] Last Admin: 07/11/21 08:36 Dose: 3 ml Documented by: ACOSTA Sodium Chloride (0.9 % Sodium Chloride Flush 3 Ml Syringe) 3 ml IVFLUSH [facility] Last Admin: 07/11/21 09:32 Dose: Not Given Documented by: MAEVE Non-Admin Reason: IV Running Labs CBC & Chem 7: 07/11/21 06:00 07/11/21 06:00 Labs: Laboratory Results - last 24 hr 07/10/21 07/10/21 07/10/21 09:55 17:45 20:15 MCV MCH MCHC RDW Plt Count MPV Immature Gran % (Auto) Neut % (Auto) Lymph % (Auto) [place] % (Auto) Eos % (Auto) Baso % (Auto) Lymph # (Auto) [place] # (Auto) Eos # (Auto) Baso # (Auto) Abs Immat Gran (auto) Absolute Neuts (auto) Absolute Nucleated RBC Nucleated RBC % (auto) Anion Gap Estim Creat Clear Calc Estimated GFR POC Glucose 268 H 301 H Random Glucose Estimat Average Glucose 280 Hemoglobin A1c % 11.4 Lactic Acid Calcium Total Bilirubin Direct Bilirubin AST ALT Alkaline Phosphatase Total Protein Albumin Urine Color Urine Appearance Urine pH Ur Specific [place] Urine Protein Urine Glucose (UA) Urine Ketones Urine Blood Urine Nitrite Ur Leukocyte Esterase Urine RBC Urine WBC Ur Squamous Epith Cells Urine Bacteria 07/11/21 07/11/21 07/11/21 05:52 06:00 06:00 MCV 80.7 MCH 27.2 MCHC 33.7 RDW 13.1 Plt Count 323 MPV 9.7 Immature Gran % (Auto) 0.8 H Neut % (Auto) 86.4 H Lymph % (Auto) 6.2 L [place] % (Auto) 6.4 Eos % (Auto) 0.1 Baso % (Auto) 0.1 Lymph # (Auto) 1.2 [place] # (Auto) 1.2 Eos # (Auto) 0.0 Baso # (Auto) 0.0 Abs Immat Gran (auto) 0.15 H Absolute Neuts (auto) 16.5 H Absolute Nucleated RBC 0.000 Nucleated RBC % (auto) 0.0 Anion Gap 16 Estim Creat Clear Calc 89.6 Estimated GFR > 60 POC Glucose Random Glucose 271 H Estimat Average Glucose Hemoglobin A1c % Lactic Acid Calcium 8.6 Total Bilirubin 2.6 H Direct Bilirubin 1.4 H AST 59 H ALT 85 H Alkaline Phosphatase 146 H Total Protein 6.2 L Albumin 3.4 L Urine Color YELLOW Urine Appearance CLEAR Urine pH 6.0 Ur Specific [place] 1.025 Urine Protein TRACE Urine Glucose (UA) 250 H Urine Ketones 40 Urine Blood TRACE Urine Nitrite NEG Ur Leukocyte Esterase TRACE H Urine RBC 1-4 Urine WBC 10-14 H Ur Squamous Epith Cells 1+ Urine Bacteria 1+ 07/11/21 07/11/21 07/11/21 07:17 08:26 11:13 MCV MCH MCHC RDW Plt Count MPV Immature Gran % (Auto) Neut % (Auto) Lymph % (Auto) [place] % (Auto) Eos % (Auto) Baso % (Auto) Lymph # (Auto) [place] # (Auto) Eos # (Auto) Baso # (Auto) Abs Immat Gran (auto) Absolute Neuts (auto) Absolute Nucleated RBC Nucleated RBC % (auto) Anion Gap Estim Creat Clear Calc Estimated GFR POC Glucose 253 H 221 H Random Glucose Estimat Average Glucose Hemoglobin A1c % Lactic Acid 1.4 Calcium Total Bilirubin Direct Bilirubin AST ALT Alkaline Phosphatase Total Protein Albumin Urine Color Urine Appearance Urine pH Ur Specific [place] Urine Protein Urine Glucose (UA) Urine Ketones Urine Blood Urine Nitrite Ur Leukocyte Esterase Urine RBC Urine WBC Ur Squamous Epith Cells Urine Bacteria Assessment and Plan (1) Elevated blood sugar: Status: Acute (2) Elevated blood pressure reading: Status: Acute (3) Acute cholecystitis: Status: Acute Assessment and Plan: 66-year-old woman admitted by General surgery for acute cholecystitis. Acute cholecystitis. Management per surgical team Showed no stones in CBD Pain management Leukocytosis. Secondary to acute cholecystitis On Zosyn Uncontrolled diabetes Newly diagnosed diabetes type 2 HbA1c of 11.4 Continue Sliding scale hypertension not taking any medication currently Continue to monitor DVT prophylaxis mechanical compression boots Quality Stroke Does the patient have a stroke diagnosis?: No VTE Prior VTE?: No VTE Risk Level:: Medical - moderate - high VTE Device Contraindication: N/A - Device Ordered VTE Drug Contraindication: N/A - Med Ordered
--- NOTE | 2021-07-11 14:33 | P.OP_ITS ---
Operative Note Operative Note Date of Service: 07/11/21 Narrative: Preop diagnosis: Acute calculous cholecystitis Postop diagnosis: Acute calculous cholecystitis, gangrenous Procedure: Attempted laparoscopic cholecystectomy, converted to open cholecystectomy Surgeon: Ziggy Pan MD food and nutrition services assistant: DAMARI Miramontes The patient is a 66 year old morbidly obese female who was admitted yesterday because of right-sided abdominal pain, with note of acute cholecystitis on i maging studies including an ultrasound CT scan. She had leukocytosis at 02:20. She had elevated bilirubin so I did an MRCP today which did not reveal any suggestion of CBD obstruction. It therefore. That her abnormalities were secondary to the severe inflammation of the gallbladder. The patient was also tachycardic and met sepsis criteria. However, her lactate levels were normal. She understood the technique of cholecystectomy. She was aware of the risks, benefits, and alternatives had given consent. Her was involved with discussion She was brought to the operating room. She was placed supine on the table under general anesthesia via endotracheal tube. The abdomen was prepped and draped in the usual sterile fashion. A surgical time-out was done. The patient received Cefotan 2 g IV preoperatively. I made a short supraumbilical incision using blade 15. This was carried down through the full-thickness of the skin and thick subcutaneous fat using blunt dissection with a Cholo clamps. However, because of the patient's morbid obesity, we had difficulty exposing the fascia. We spent several minutes trying to reach the fascia and eventually was able to grab the fascia with Cholo clamps. The fascia was incised gently and I used blunt dissection with at sides clamp to enter the peritoneum. Eventually, we were able to enter the peritoneal cavity and was able to insert a Carolyn port which had to be hubbed to reach the peritoneum. We insufflated to a pressure of 15 mm hg. I then used an angled 10 mm 30 degree scope to achieve good visualization of the upper abdomen. Again this part of the procedure was difficult in view of the patient's morbid obesity and habitus. I made a short incision in the epigastric area below the subcostal margin and applied a 10 mm port through this incision. Using visualization with the laparoscopic, proceeded to then insert 5 mm ports below the subcostal margin along the anterior axillary line and the midclavicular line. We were able to see the gallbladder which was markedly distended and edematous with note of obvious patches of gangrene. Since it was markedly distended, had to decompress the gallbladder using an aspirating needle through 1 of the 5 mm ports under direct vision. Once were able to decompress, able to apply grasper which was used to retract the gallbladder cephalad. I was able to apply another grasper on part of the anterior wall. The wall of the gallbladder was very thick, markedly edematous and had rind that was markedly thickened and erythematous. We proceeded to gently try to dissect the rind using blunt dissection with the [place] dissector. With we gently teased the rind carefully to pull this down towards the direction of these cystic duct to try to expose the neck. We did this maneuver multiple times but we encountered significant bleeding because of the severe inflammatory changes. Furthermore, the anatomy was very difficult to define at this point due to a combination of multiple factors, including the patient's habitus, obesity, degree of inflammatory changes in the neck of the gallbladder, and the accompanying thickened, indurated and edematous fatty oral tissue towards the area of the cystic duct. In view of this combination of factors, decided that it would be safer to proceed to an open cholecystectomy. I therefore removed all instruments and desufflated the port sites. I removed all ports. I made a generous subcostal incision of the right side using a blade 10. This was carried down with electrocautery through the full-thickness of the very thick subcutaneous fat until we reached the anterior sheath. We incised the anterior sheath with electrocautery and divided the rectus muscle with electrocautery as well, gently exposing this with the Candy clamp as we deepened the incision. We extended this incision to the obliques laterally. We went through the posterior sheath and entered the peritoneum. We then applied the Bookwalter retractors to retract bowel loops inferiorly, medially as well as laterally to expose the hepatic space and the gallbladder. I protected the bowel loops with moist laps below the retractors which were positioned with the Bookwalter. I positioned a shallow retractor on the liver edge as well. The liver was noted to be very edematous, full and appeared enlarged. I was able to see the gallbladder immediately and again there was noted to be gangrenous. We applied a Candy clamp on the fundus to retract this and then incised the thickened edematous peritoneum using electrocautery. I then proceeded to do blunt dissection with the right angle clamp to identify the plane of the rind in the wall the gallbladder and by doing so was able to see this plane and proceeded to carefully define this plane using blunt dissection and electrocautery. Continued to gently separate the gallbladder from the liver bed along this well-defined plane of dissection. We countered a lot of bleeding in view of the severe inflammatory of changes of the gallbladder wall. Again some of the areas of the gallbladder appeared have obvious focal gangrene. Proceeded with dissection to carefully separate the rest of the posterior wall of the gallbladder from the liver bed using the right angle clamp gamma carefully dividing inflamed tissue between the wall and the liver bed with electrocautery. We proceeded with this circumferentially to further separate the thick inflammatory rind of the gallbladder from the gallbladder wall itself. This part of the dissection took most of the procedure as we had to be careful in view of the persistent oozing as we proceeded with dissection in view of the inflammatory process. Eventually, I was able to reach what appeared to be a funneling of the gallbladder that represented its neck. I continued to define this neck and we encountered arterial bleeders on the posterior wall that appeared to be part of the cystic artery. We had to clamp this and apply ties with Dexon 3-0 stitch to achieve hemostasis Eventually proceeded to continue to dissect carefully using the peanut, right angle clamp, the tip of the suction, as well as electrocautery to carefully define the neck. Eventually was able to see what appeared to be the clear funneling toward the cystic duct.. Since there was a lot of inflammatory changes more distal to this, I felt it would be safe to divide at this point. I therefore proceeded to apply a right angle clamp at the distal part of the neck. I then divided the neck above this and the entire gallbladder was sent as a specimen. I then applied to Dexon 2-0 ties to the distal neck/cystic duct area. I removed the right angle clamp. The ties appeared to be intact I observed for hemostasis. I copies irrigated. Then observed that there was good hemostasis. I then removed the lap pads and retractors and observe the surrounding bowel. There was no evidence of any bowel injury as we had retracted this away from the area of dissection After repeat copious irrigation, proceeded to then carefully examined the subhepatic space and this appeared to be hemostatic. I positioned a 10. THU drain to the subhepatic space and this drain was brought out through an exit site with a stab incision on the upper quadrant just laterally. I then proceeded to make sure that there were no lap pads in the subhepatic space. I closed the posterior sheath with a running stitch using a Dexon 0. I then closed the anterior sheath all the way laterally to the obliques using an Maxon 1 stitch. I then closed the fascia of the umbilical incision with the figure-eight Dexon 0 stitch. Anatomy of this area was difficult in view of the pannus. All skin incision was then closed with skin bina. All incisions were then infiltrated with Marcaine 0.5% for postop analgesia Dressings were applied. The procedure was then completed The patient tolerated procedure well. There were no complication noted. Initial and final counts of sponges and instruments were correct. Estimated blood loss about 200 cc The patient was then extubated without difficulty and transferred to the recovery room with stable vital signs.
--- NOTE | 2021-07-11 14:39 | PM.OP ---
Brief Operative Note Date of Service: 07/11/21 <Elma Miramontes PA-C - Last Filed: 07/11/21 14:40> Pre-op diagnosis: acute cholecystitis <UMM Long Last Filed: 07/11/21 14:40> Post-op diagnosis: same (gangrenous) <Elma Miramontes PA-C - Last Filed: 07/11/21 14:40> Procedure: laparoscopic attempted converted to open cholecystectomy <Elma Miramontes PA-C - Last Filed: 07/11/21 14:40> Surgeon: AIDEE PAN MD <Elma Miramontes PA-C - Last Filed: 07/11/21 14:40> Anesthesia: GETA <Elma Miramontes PA-C - Last Filed: 07/11/21 14:40> Was an Copy Messenger used for this Procedure?: Yes <Elma Miramontes PA-C - Last Filed: 07/11/21 14:40> No <Aidee Pan MD - Last Filed: 07/11/21 14:49> Copy Messenger: Elma Miramontes <UMM Long Last Filed: 07/11/21 14:40> Estimated blood loss (mL): 200 <UMM Long Last Filed: 07/11/21 14:40> Condition: stable <UMM Long Last Filed: 07/11/21 14:40> Disposition: PACU <UMM Long Last Filed: 07/11/21 14:40>
--- NOTE | 2021-07-11 14:48 | P.BOP_ITS ---
Brief Operative Note Date of Service: 07/11/21 Pre-op diagnosis: Acute cholecystitis Post-op diagnosis: other (Gangrenous cholecystitis) Procedure: Attempted laparoscopic cholecystectomy converted to open cholecystectomy Surgeon: Ziggy Pan MD Anesthesia: GETA Was an Assistant Store Manager Sales used for this Procedure?: Yes Assistant Store Manager Sales: Elma Miramontes Estimated blood loss (mL): 200 Pathology: other (Gallbladder) Condition: stable Disposition: PACU
--- NOTE | 2021-07-11 16:08 | PM.EVENT ---
Event Note Date of Service: 07/11/21 Event Note: Seen postop Underwent open cholecystectomy earlier this afternoon for gangrenous cholecystitis She seems to have adequate pain control Stable vital signs Dressings dry THU drain with scanty serosanguineous fluid She understood questions, does not appear toxic Pain management Continue IV antibiotics On clear liquids Emil updated as well
[2021-07-11] MEDS: 0.9 % Sodium Chloride 1,000 ML 100 ML IVCONT (18:01)
[2021-07-11 21:15] LABS: Glucose, Whole Blood 332 mg/dL (60-115)
[2021-07-12] VITALS (7 sets, daily range): BP systolic 106–142; BP diastolic 65–92; PULSE 90–103; RESP 14–18; TEMP 36.2–37.1; O2SAT 92–96
[2021-07-12] MEDS: Piperacillin Sodium/Tazobactam 3.375 GM in 0.9 % Sodium Chloride 50 ML IV ×4 (03:27→22:12)
[2021-07-12] MEDS: Morphine Sulfate/NS 100 MG/100 ML PLAST..BAG IVCONT (04:02)
--- NOTE | 2021-07-12 04:05 | PC.NURSE ---
elementary school tutor pump started at 0400 , pump started at 0 basal rate , 1mg bolus per hour - 6 per hour . nursing [employer] supervisor at bedside with setup . Richar lopez witness for initial set up .
[2021-07-12 06:51] LABS: MANUAL DIFF FLAG NO
[2021-07-12 06:59] LABS: Basophils Percent Auto 0.1 % (0-2); Eosinophils Percent Auto 0.1 % (0-4); Hematocrit 39.8 % (37-47); Hemoglobin 13.2 g/dl (12.0-16.0); Imm Gran Abs Auto 0.08 X10*3/uL (0.00-0.03); Imm Gran Pct Auto 0.5 % (0.0-0.4); Lymphocytes Percent Auto 6.7 % (20-40); Mean Corpuscular HGB Conc 33.2 g/dl (31.0-35.0); Mean Corpuscular Hemoglobin 26.9 pg (27.0-33.0); Mean Corpuscular Volume 81.2 fL (80-98); Mean Platelet Volume 9.8 fL (9.4-12.3); Monocytes Absolute Auto 1.1 X10*3/uL (0.1-1.2); Monocytes Percent Auto 6.9 % (2-11); Neutrophils Absolute Auto 13.1 X10*3/uL (2.0-8.3); Neutrophils Percent Auto 85.7 % (45-73); Platelet Count 282 X10*3/uL (160-400); Red Cell Distribution Width 13.4 % (11.0-16.0); White Blood Count 15.3 X10*3/uL (4.8-10.8)
--- NOTE | 2021-07-12 07:04 | PC.NURSE ---
0300 am , pt noted to have MECHANIC FOREMAN pump order but not hung at bedside , pt c/o pain . Reacher pump started at 0330 pt educated how to use pump . 0530 pt states pain improved , pt able to sleep . nursing hydrochloric manufacturing supervisor made aware. pump initiated by this rn , nursing hydrochloric manufacturing supervisor and Richar Tran RN as witness.
[2021-07-12 07:38] LABS: Alanine Aminotransferase 142 U/L (0-31); Albumin Level 2.9 g/dL (3.5-5.0); Alkaline Phosphatase 126 U/L (39-117); Anion Gap 14 (12-20); Aspartate Amino Transferase 79 U/L (5-31); Bilirubin Direct 0.7 mg/dL (0.0-0.5); Bilirubin Total 1.1 mg/dL (0.0-1.0); Blood Urea Nitrogen 15 mg/dL (9-16); Carbon Dioxide 23 mmol/L (22-29); Chloride 104 mmol/L (96-108); Creatinine Clr Calc Pharmacy 85.3; Estimated Glomerular Filt Rate > 60; Glucose Fasting 267 mg/dL (60-99); Potassium 3.7 mmol/L (3.3-5.1); Sodium 137 mmol/L (135-145); Total Protein 5.4 g/dL (6.5-8.0)
[2021-07-12] MEDS: 0.9 % Sodium Chloride 1,000 ML 100 ML IVCONT (07:41)
--- NOTE | 2021-07-12 08:03 | PM.PNGS ---
Subjective Subjective Date of Service: 07/12/21 <Elma Miramontes PA-C - Last Filed: 07/12/21 08:13> 07/12/21 <Ziggy Pan MD - Last Filed: 07/12/21 09:42> Interval history: Did not have MOTION PICTURE PHOTOGRAPHER set up until early this morning. Feeling better and pain controlled. Tolerating clears and wants to eat. OOB to bathroom. <Elma Miramontes PA-C - Last Filed: 07/12/21 08:13> Physical Exam Vital Signs: Vital Signs: Last Vital Signs Temp 98.7 F 07/12/21 07:37 Pulse 97 07/12/21 07:37 Resp 14 07/12/21 07:37 BP 122/69 07/12/21 07:37 Pulse Ox 96 07/12/21 07:37 Body Mass Index 45.6 <Elma Miramontes PA-C - Last Filed: 07/12/21 08:13> Const: General: comfortable, no acute distress and alert <Elma Miramontes PA-C - Last Filed: 07/12/21 08:13> Nutritional Appearance: obese <Elma Miramontes PA-C - Last Filed: 07/12/21 08:13> Orientation/consciousness: patient oriented x3 <UMM Long Last Filed: 07/12/21 08:13> Eyes: Sclerae: sclerae normal <Elma Miramontes PA-C - Last Filed: 07/12/21 08:13> Resp: Effort & Inspection: normal respiratory effort <Elma Miramontes PA-C - Last Filed: 07/12/21 08:13> Cardio: Rate: regular rate <UMM Long Last Filed: 07/12/21 08:13> GI: Other: THU drain with serosanguineous drainage <UMM Long Last Filed: 07/12/21 08:13> Inspection: No distended and Yes incision (dressings intact) <UMM Long Last Filed: 07/12/21 08:13> Palpation (GI): Soft to palpation, Tenderness to palpation present (GI) (incisional), no guarding and not rigid <UMM Long Last Filed: 07/12/21 08:13> Skin: General skin exam: no rashes or lesions noted <Elma Miramontes PA-C - Last Filed: 07/12/21 08:13> Neuro: General: patient oriented x3 <UMM Long Last Filed: 07/12/21 08:13> Procedures Date of Service Date of Service: 07/12/21 <UMM Long Last Filed: 07/12/21 08:13> Progress Note: A&P Assessment and plan (1) Elevated blood sugar: Status: Acute <UMM Long Last Filed: 07/12/21 08:13> (2) Acute cholecystitis: Status: Acute <UMM Long Last Filed: 07/12/21 08:13> Assessment and Plan: Now with good pain control on MOTION PICTURE PHOTOGRAPHER Looks well THU drain scanty output, serosanguineous Dressings dry LFTs improving Continue IV antibiotics Pain management Seen and examined - agree with DAMARI Miramontes <Ziggy Pan MD - Last Filed: 07/12/21 09:42> (3) S/P cholecystectomy: Status: Acute <Elma Miramontes PA-C - Last Filed: 07/12/21 08:13> Assessment and Plan: 66 year old female admitted with gangrenous acute cholecystitis now s/p lap attempted converted open cholecystectomy. She is doing fairly well post op, good pain control with MOTION PICTURE PHOTOGRAPHER. VSS. Abd exam benign with appropriate post op tenderness. Dressing intact. THU drain with serosanguineous output- keep in place for now. Will advance to diabetic diet. Encouraged OOB/IS use and ambulation. AM labs reviewed- leukocytosis and LFTs downtrending. Elevated POCs, A1c 11. Hospitalists following. <UMM Long Last Filed: 07/12/21 08:13> Fall Risk Details Current Medications: Current Medications Generic Name Dose Route Start Last Admin Trade Name Freq PRN Reason Stop Dose Admin Anastrozole 1 mg 07/12/21 09:00 Anastrozole 1 Mg Tablet PO DAILY VIVIANE Dextrose 25 gm 07/10/21 15:40 Dextrose 50 % 25 Gm/50 Ml Vial IVPUSH Q15M PRN per Hypoglycemia Standing Ord. Protocol Glucose 15 gm 07/10/21 15:40 Glucose Gel 15 Gm Gel..Gram. PO Q15M PRN per Hypoglycemia Standing Ord. Protocol Heparin Sodium (Porcine) 5,000 unit 07/12/21 10:00 Heparin Sodium,Porcine 5,000 Unit/Ml Vial SUBCUT Q12H VIVIANE Sodium Chloride 1,000 mls @ 100 mls/hr 07/10/21 15:00 07/12/21 07:41 Ns IVCONT 100 mls/hr .Q10H VIVIANE Administration Piperacillin Sod/Tazobactam 50 mls @ 100 mls/hr 07/10/21 15:00 07/12/21 04:16 Sod 3.375 gm/ Sodium Chloride IV Infused Q6H VIVIANE Infusion Morphine Sulfate 100 mg in 100 mls @ 0 mls/hr 07/11/21 17:43 07/12/21 04:02 IVCONT 1 mg/hr .Q0M VIVIANE 1 mls/hr Administration Protocol Per Protocol Acetaminophen 1,000 mg in 100 mls @ 400 mls/hr 07/11/21 17:43 07/12/21 05:29 Ofirmev IV Infused Q6H VIVIANE Infusion Insulin Human Lispro 0 unit 07/10/21 16:30 07/11/21 21:13 Insulin Lispro 100 Unit/Ml 3 Ml Vial SUBCUT 8 unit QIDACHS VIVIANE Administration Protocol Lisinopril 10 mg 07/11/21 09:00 07/11/21 08:04 Lisinopril 10 Mg Tablet PO 10 mg DAILY VIVIANE Administration Protocol Naloxone HCl 0.2 mg 07/11/21 17:43 Naloxone Hcl 0.4 Mg/Ml Vial IVPUSH Q2M PRN Excessive sedation or RR < 8 Ondansetron HCl 4 mg 07/10/21 15:05 Ondansetron Hcl 4 Mg/2 Ml Vial IVPUSH Q8H PRN nausea Pharmacy Consult 1 each 07/10/21 15:44 Consult Rx Perform Med Rec MISCELLANE ONCE PRN Consult order Sodium Chloride 3 ml 07/10/21 16:00 07/12/21 06:55 0.9 % Sodium Chloride Flush 3 Ml Syringe IVFLUSH Not Given QSHIFT [facility] <Elma Miramontes PA-C - Last Filed: 07/12/21 08:13> Time Spent With Patient Time: Total time spent is greater than 50% in coordination of care (as documented) at patient's floor/unit and/or counseling patient: <Elma Miramontes PA-C - Last Filed: 07/12/21 08:13> Time with patient: 15 - 24 minutes <Elma Miramontes PA-C - Last Filed: 07/12/21 08:13> Quality Stroke Does the patient have a stroke diagnosis?: No <Elma Miramontes PA-C - Last Filed: 07/12/21 08:13> VTE Prior VTE?: No <Elma Miramontes PA-C - Last Filed: 07/12/21 08:13> VTE Risk Level:: Medical - moderate - high <UMM Long Last Filed: 07/12/21 08:13> VTE Device Contraindication: N/A - Device Ordered <Elma Miramontes PA-C - Last Filed: 07/12/21 08:13> VTE Drug Contraindication: N/A - Med Ordered <Elma Miramontes PA-C - Last Filed: 07/12/21 08:13>
[2021-07-12 08:09] LABS: Glucose, Whole Blood 243 mg/dL (60-115)
[2021-07-12] MEDS: Anastrozole 1 MG TABLET PO (08:19)
[2021-07-12] MEDS: Heparin Sodium,Porcine 5,000 UNIT/ML VIAL 5000 UNIT SUBCUT ×2 (08:19→22:13)
[2021-07-12] MEDS: Insulin Lispro 100 UNIT/ML 3 ML VIAL SUBCUT ×4 (08:21→22:13)
[2021-07-12] MEDS: lisinopriL 10 MG TABLET PO (08:21)
--- NOTE | 2021-07-12 11:01 | HO.POSTANES ---
Post Anesthesia Evaluation Post Anesthesia Evaluation Vital Signs: Vital Signs Temp Pulse Resp BP Pulse Ox 07/12/21 07:37 98.7 F 97 14 122/69 96 07/12/21 03:59 97.2 F 90 18 142/88 H 92 07/11/21 23:51 97.2 F 92 18 119/72 95 Anesthesia: General Endotracheal-GETA Mental Status: Awake Pain Control: Satisfactory Nausea/Vomiting: None Hydration: Adequate Anesthesia-Related Issues: No Anes. Related Issues
[2021-07-12 11:43] LABS: Glucose, Whole Blood 248 mg/dL (60-115)
--- NOTE | 2021-07-12 13:15 | P.PNIM_ITS ---
Subjective Subjective Date of Service: 07/12/21 Interval History: the patient was seen and evaluated this morning Laying in bed, pain is better controlled this morning Tolerating diet Denies any fever, chills or shortness of breath No reported other overnight events. Systemic review: No fever, chills but complaining of pain No chest pain, palpitation No shortness of breath or coughing Surgical site pain No urinary symptoms No any rash or wounds Physical Exam Vital Signs: Vital Signs: Last Vital Signs Temp 98.5 F 07/12/21 11:02 Pulse 103 H 07/12/21 11:02 Resp 14 07/12/21 07:37 BP 106/92 H 07/12/21 11:02 Pulse Ox 95 07/12/21 11:02 Body Mass Index 45.6 Const: Other: Constitutional : Alert, oriented, obese Neck : Normal inspection, Supple Cardiovascular : RRR, S1 S2, no lower extremity edema Respiratory : Good bilateral air entry, no crackles, wheezes or rhonchi Gastrointestinal: soft, lax, decrease bowel sounds, surgical site pain Skin : Warm, Dry Neurological : Alert & oriented x3, No focal deficit Objective Data Active Medications Anastrozole (Anastrozole 1 Mg Tablet) 1 mg PO DAILY [facility] Last Admin: 07/12/21 08:19 Dose: 1 mg Documented by: JOSÉ LUIS Dextrose (Dextrose 50 % 25 Gm/50 Ml Vial) 25 gm IVPUSH Q15M PRN; Protocol PRN Reason: per Hypoglycemia Standing Ord. Glucose (Glucose Gel 15 Gm Gel..Gram.) 15 gm PO Q15M PRN; Protocol PRN Reason: per Hypoglycemia Standing Ord. Heparin Sodium (Porcine) (Heparin Sodium,Porcine 5,000 Unit/Ml Vial) 5,000 unit SUBCUT Q12H [facility] Last Admin: 07/12/21 08:19 Dose: 5,000 unit Documented by: JOSÉ LUIS Sodium Chloride (Ns) 1,000 mls @ 100 mls/hr IVCONT .Q10H [facility] Last Admin: 07/12/21 07:41 Dose: 100 mls/hr Documented by: JOSÉ LUIS Piperacillin Sod/Tazobactam (Sod 3.375 gm/ Sodium Chloride) 50 mls @ 100 mls/hr IV Q6H [facility] Last Infusion: 07/12/21 08:57 Dose: 0 mls/hr Documented by: JOSÉ LUIS Morphine Sulfate () 100 mg in 100 mls @ 0 mls/hr IVCONT .Q0M [facility]; Protocol Last Infusion: 07/12/21 10:41 Dose: 1 mg/hr, 1 mls/hr Documented by: JOSÉ LUIS Acetaminophen (Ofirmev) 1,000 mg in 100 mls @ 400 mls/hr IV Q6H [facility] Last Infusion: 07/12/21 12:46 Dose: 0 mls/hr Documented by: JOSÉ LUIS Insulin Human Lispro (Insulin Lispro 100 Unit/Ml 3 Ml Vial) 0 unit SUBCUT QIDACHS [facility]; Protocol Last Admin: 07/12/21 11:57 Dose: 4 unit Documented by: JOSÉ LUIS Lisinopril (Lisinopril 10 Mg Tablet) 10 mg PO DAILY [facility]; Protocol Last Admin: 07/12/21 08:21 Dose: 10 mg Documented by: JOSÉ LUIS Naloxone HCl (Naloxone Hcl 0.4 Mg/Ml Vial) 0.2 mg IVPUSH Q2M PRN PRN Reason: Excessive sedation or RR < 8 Ondansetron HCl (Ondansetron Hcl 4 Mg/2 Ml Vial) 4 mg IVPUSH Q8H PRN PRN Reason: nausea Pharmacy Consult (Consult Rx Perform Med Rec) 1 each MISCELLANE ONCE PRN PRN Reason: Consult order Sodium Chloride (0.9 % Sodium Chloride Flush 3 Ml Syringe) 3 ml IVFLUSH QSHIFT [facility] Last Admin: 07/12/21 06:55 Dose: Not Given Documented by: JOSÉ LUIS Non-Admin Reason: IV Running Labs CBC & Chem 7: 07/12/21 06:11 07/12/21 06:11 Labs: Laboratory Results - last 24 hr 07/11/21 07/11/21 07/12/21 13:41 20:46 06:11 MCV 81.2 MCH 26.9 L MCHC 33.2 RDW 13.4 Plt Count 282 MPV 9.8 Immature Gran % (Auto) 0.5 H Neut % (Auto) 85.7 H Lymph % (Auto) 6.7 L [place] % (Auto) 6.9 Eos % (Auto) 0.1 Baso % (Auto) 0.1 Lymph # (Auto) 1.0 L [place] # (Auto) 1.1 Eos # (Auto) 0.0 Baso # (Auto) 0.0 Abs Immat Gran (auto) 0.08 H Absolute Neuts (auto) 13.1 H Absolute Nucleated RBC 0.000 Nucleated RBC % (auto) 0.0 Anion Gap Estim Creat Clear Calc Estimated GFR POC Glucose 332 H Fasting Glucose Calcium Total Bilirubin Direct Bilirubin AST ALT Alkaline Phosphatase Total Protein Albumin Blood Type O Positive Antibody Screen NEGATIVE 07/12/21 07/12/21 07/12/21 06:11 06:11 07:37 MCV MCH MCHC RDW Plt Count MPV Immature Gran % (Auto) Neut % (Auto) Lymph % (Auto) [place] % (Auto) Eos % (Auto) Baso % (Auto) Lymph # (Auto) [place] # (Auto) Eos # (Auto) Baso # (Auto) Abs Immat Gran (auto) Absolute Neuts (auto) Absolute Nucleated RBC Nucleated RBC % (auto) Anion Gap 14 Estim Creat Clear Calc 85.3 Estimated GFR > 60 POC Glucose 243 H Fasting Glucose 267 H Calcium 8.0 L D Total Bilirubin 1.1 H Direct Bilirubin 0.7 H AST 79 H ALT 142 H Alkaline Phosphatase 126 H Total Protein 5.4 L Albumin 2.9 L Blood Type Antibody Screen 07/12/21 11:07 MCV MCH MCHC RDW Plt Count MPV Immature Gran % (Auto) Neut % (Auto) Lymph % (Auto) [place] % (Auto) Eos % (Auto) Baso % (Auto) Lymph # (Auto) [place] # (Auto) Eos # (Auto) Baso # (Auto) Abs Immat Gran (auto) Absolute Neuts (auto) Absolute Nucleated RBC Nucleated RBC % (auto) Anion Gap Estim Creat Clear Calc Estimated GFR POC Glucose 248 H Fasting Glucose Calcium Total Bilirubin Direct Bilirubin AST ALT Alkaline Phosphatase Total Protein Albumin Blood Type Antibody Screen Microbiology Microbiology Results: Microbiology 07/10/21 12:12 Blood Culture - Preliminary Blood - Venous No growth after 24 hours. 07/10/21 12:05 Blood Culture - Preliminary Blood - Venous No growth after 24 hours. Assessment and Plan (1) S/P cholecystectomy: Status: Acute (2) Newly diagnosed diabetes: Status: Acute Assessment and Plan: 66-year-old woman admitted by General surgery for acute cholecystitis. Acute cholecystitis. Post cholecystectomy day 1 Surgical team following Pain management Leukocytosis. Secondary to acute cholecystitis Continue Zosyn Uncontrolled diabetes Newly diagnosed diabetes type 2 HbA1c of 11.4 Continue Sliding scale Start Lantus insulin 8 units Will need outpatient follow-up with Endocrinology hypertension not taking any medication currently Continue to monitor DVT prophylaxis mechanical compression boots Quality Stroke Does the patient have a stroke diagnosis?: No VTE Prior VTE?: No VTE Risk Level:: Medical - moderate - high VTE Device Contraindication: N/A - Device Ordered VTE Drug Contraindication: N/A - Med Ordered
[2021-07-12] MEDS: Insulin Glargine,Hum.rec.anlog 100 UNIT/ML 10 ML VIAL 8 UNIT SUBCUT (13:30)
--- NOTE | 2021-07-12 14:40 | MHC.CLN ---
DIABETIC TEACHING COMPLETED SEE TEACHING RECORD REFER TO ENDOCRINOLOGY OUT PATIENT RD FOR FURTHER DM EDUCATION AND F/U
[2021-07-12] MEDS: 0.9 % Sodium Chloride Flush 3 ML SYRINGE IVFLUSH (16:04)
[2021-07-12 16:53] LABS: Glucose, Whole Blood 213 mg/dL (60-115)
[2021-07-12 20:42] LABS: Glucose, Whole Blood 190 mg/dL (60-115)
[2021-07-13] VITALS (12 sets, daily range): BP systolic 121–146; BP diastolic 65–91; PULSE 87–101; RESP 16–20; TEMP 36.7–37.9; O2SAT 92–96
[2021-07-13] MEDS: 0.9 % Sodium Chloride 1,000 ML 100 ML IVCONT (01:50)
[2021-07-13] MEDS: Piperacillin Sodium/Tazobactam 3.375 GM in 0.9 % Sodium Chloride 50 ML IV ×4 (02:42→21:35)
[2021-07-13 06:39] LABS: Mean Corpuscular HGB Conc 32.5 g/dl (31.0-35.0); Mean Corpuscular Hemoglobin 26.9 pg (27.0-33.0); Mean Corpuscular Volume 82.6 fL (80-98); Mean Platelet Volume 9.8 fL (9.4-12.3); Platelet Count 290 X10*3/uL (160-400); Red Blood Count 4.84 X10*6/uL (4.20-5.50); Red Cell Distribution Width 13.7 % (11.0-16.0); White Blood Count 9.9 X10*3/uL (4.8-10.8)
[2021-07-13 06:47] LABS: Alanine Aminotransferase 127 U/L (0-31); Albumin Level 2.9 g/dL (3.5-5.0); Alkaline Phosphatase 128 U/L (39-117); Anion Gap 13 (12-20); Aspartate Amino Transferase 66 U/L (5-31); Bilirubin Direct 0.5 mg/dL (0.0-0.5); Bilirubin Total 0.9 mg/dL (0.0-1.0); Blood Urea Nitrogen 14 mg/dL (9-16); Calcium 7.9 mg/dL (8.4-10.2); Carbon Dioxide 24 mmol/L (22-29); Chloride 108 mmol/L (96-108); Creatinine Clr Calc Pharmacy 99.7; Estimated Glomerular Filt Rate > 60; Glucose Random 149 mg/dL (60-115); Potassium 3.6 mmol/L (3.3-5.1); Sodium 141 mmol/L (135-145); Total Protein 5.3 g/dL (6.5-8.0)
[2021-07-13 07:39] LABS: Glucose, Whole Blood 134 mg/dL (60-115)
[2021-07-13] MEDS: Anastrozole 1 MG TABLET PO (09:39)
[2021-07-13] MEDS: lisinopriL 10 MG TABLET PO (09:39)
[2021-07-13] MEDS: Heparin Sodium,Porcine 5,000 UNIT/ML VIAL 5000 UNIT SUBCUT ×2 (09:39→21:32)
[2021-07-13] MEDS: Insulin Glargine,Hum.rec.anlog 100 UNIT/ML 10 ML VIAL 8 UNIT SUBCUT (09:40)
[2021-07-13] MEDS: Morphine Sulfate 4 MG/ML CARTRIDGE 3 MG IVPUSH ×2 (09:40→15:36)
--- NOTE | 2021-07-13 10:07 | P.PNGS_ITS ---
Subjective Subjective Date of Service: 07/13/21 Interval history: c/o incisional pain tolerating diet althugh appetite not back yet passing flatus voiding freely Physical Exam Vital Signs: Vital Signs: Last Vital Signs Temp 100.2 F 07/13/21 07:27 Pulse 87 07/13/21 09:39 Resp 19 07/13/21 09:40 BP 121/67 07/13/21 09:39 Pulse Ox 94 07/13/21 07:27 Body Mass Index 45.6 Const: Other: Chemistry 07/10/21 07/11/21 07/12/21 09:55 06:00 06:11 Sodium 135 137 137 Potassium 4.0 4.0 3.7 Carbon Dioxide 25 24 23 BUN 9 9 15 D Creatinine 0.83 0.79 0.83 Calcium 9.1 8.6 8.0 L D 07/13/21 05:47 Sodium 141 Potassium 3.6 Carbon Dioxide 24 BUN 14 Creatinine 0.71 Calcium 7.9 L Hematology 07/11/21 07/12/21 07/13/21 06:00 06:11 05:47 WBC 19.1 H 15.3 H 9.9 Hgb 14.9 13.2 13.0 Plt Count 323 282 290 Urinalysis 07/11/21 05:52 Urine Color YELLOW Urine Appearance CLEAR Urine pH 6.0 Ur Specific Gravit y 1.025 Urine Protein TRACE Urine Glucose (UA) 250 H Urine Ketones 40 Urine Blood TRACE Urine Nitrite NEG Ur Leukocyte Shirley ase TRACE H Urine RBC 1-4 Urine WBC 10-14 H Ur Squamous Epith Cells 1+ General: comfortable and no acute distress Resp: Effort & Inspection: normal respiratory effort GI: Other: soft, dressings dry, THU -serosnguinous, thin Procedures Date of Service Date of Service: 07/13/21 Progress Note: A&P Assessment and plan (1) S/P cholecystectomy: Status: Acute Assessment and Plan: had gangrenous cholecystitis low grade temp, HR now lower WBC normal now lytes ok looks well pain mgt IV abx doing well overall after open cholecystectomy Fall Risk Details Current Medications: Current Medications Generic Name Dose Route Start Last Admin Trade Name Freq PRN Reason Stop Dose Admin Anastrozole 1 mg 07/12/21 09:00 07/13/21 09:39 Anastrozole 1 Mg Tablet PO 1 mg DAILY VIVIANE Administration Dextrose 25 gm 07/10/21 15:40 Dextrose 50 % 25 Gm/50 Ml Vial IVPUSH Q15M PRN per Hypoglycemia Standing Ord. Protocol Glucose 15 gm 07/10/21 15:40 Glucose Gel 15 Gm Gel..Gram. PO Q15M PRN per Hypoglycemia Standing Ord. Protocol Heparin Sodium (Porcine) 5,000 unit 07/12/21 10:00 07/13/21 09:39 Heparin Sodium,Porcine 5,000 Unit/Ml Vial SUBCUT 5,000 unit Q12H VIVIANE Administration Sodium Chloride 1,000 mls @ 100 mls/hr 07/10/21 15:00 07/13/21 01:50 Ns IVCONT 100 mls/hr .Q10H VIVIANE Administration Piperacillin Sod/Tazobactam 50 mls @ 100 mls/hr 07/10/21 15:00 07/13/21 09:41 Sod 3.375 gm/ Sodium Chloride IV 100 mls/hr Q6H VIVIANE Administration Acetaminophen 1,000 mg in 100 mls @ 400 mls/hr 07/11/21 17:43 07/13/21 06:05 Ofirmev IV Infused Q6H [facility] Infusion Insulin Glargine 8 unit 07/12/21 13:20 07/13/21 09:40 Insulin Glargine,Hum.Rec.Anlog 100 Unit/Ml 10 Ml Vial SUBCUT 8 unit DAILY VIVIANE Administration Insulin Human Lispro 0 unit 07/10/21 16:30 07/13/21 07:36 Insulin Lispro 100 Unit/Ml 3 Ml Vial SUBCUT Not Given QIDACHS [facility] Protocol Lisinopril 10 mg 07/11/21 09:00 07/13/21 09:39 Lisinopril 10 Mg Tablet PO 10 mg DAILY VIVIANE Administration Protocol Morphine Sulfate 3 mg 07/13/21 09:20 07/13/21 09:40 Morphine Sulfate 4 Mg/Ml Cartridge IVPUSH 3 mg Q3H PRN Administration Pain, Severe (Pain Scale 7-10) Protocol Naloxone HCl 0.2 mg 07/11/21 17:43 Naloxone Hcl 0.4 Mg/Ml Vial IVPUSH Q2M PRN Excessive sedation or RR < 8 Ondansetron HCl 4 mg 07/10/21 15:05 Ondansetron Hcl 4 Mg/2 Ml Vial IVPUSH Q8H PRN nausea Pharmacy Consult 1 each 07/10/21 15:44 Consult Rx Perform Med Rec MISCELLANE ONCE PRN Consult order Sodium Chloride 3 ml 07/10/21 16:00 07/13/21 07:51 0.9 % Sodium Chloride Flush 3 Ml Syringe IVFLUSH Not Given QSHIFT VIVIANE Time Spent With Patient Time: Total time spent is greater than 50% in coordination of care (as documented) at patient's floor/unit and/or counseling patient: Time with patient: 15 - 24 minutes Quality Stroke Does the patient have a stroke diagnosis?: No VTE Prior VTE?: No VTE Risk Level:: Medical - moderate - high VTE Device Contraindication: N/A - Device Ordered VTE Drug Contraindication: N/A - Med Ordered
--- NOTE | 2021-07-13 10:58 | PC.NURSE ---
Patient morphine drip was discontinued. Bag wasted with RN Fabi. Patient order for morphine 3mg Q3hrs. Patient made aware. Will continue to monitor patient pain level.
[2021-07-13 11:44] LABS: Glucose, Whole Blood 180 mg/dL (60-115)
[2021-07-13] MEDS: Insulin Lispro 100 UNIT/ML 3 ML VIAL SUBCUT ×2 (11:54→21:32)
[2021-07-13] MEDS: 0.9 % Sodium Chloride 1,000 ML 60 ML IVCONT ×2 (14:48→17:45)
--- NOTE | 2021-07-13 14:59 | MHC.CM.PN ---
PER MULTIDISCIPLINARY ROUNDS NO PLAN FOR D/C TODAY, ANTICIPATE D/C IN 1-2 DAYS, PLAN CONT'S TO BE HOME SELF-CARE W/SPOUSE FOR TRANSPORT.
[2021-07-13 16:28] LABS: Glucose, Whole Blood 120 mg/dL (60-115)
[2021-07-13 20:35] LABS: Glucose, Whole Blood 152 mg/dL (60-115)
[2021-07-13] MEDS: Docusate Sodium 100 MG CAPSULE PO (21:33)
[2021-07-14] VITALS (8 sets, daily range): BP systolic 147–173; BP diastolic 75–91; PULSE 86–98; RESP 18–20; TEMP 36.2–37; O2SAT 93–97
--- NOTE | 2021-07-14 | ECG_ITS ---
Test Reason : nausea, DM Blood Pressure : / mmHG Vent. Rate : 097 BPM Atrial Rate : 097 BPM P-R Int : 134 ms QRS Dur : 084 ms QT Int : 366 ms P-R-T Axes : 015 021 028 degrees QTc Int : 464 ms Normal sinus rhythm Normal ECG When compared with ECG of 14-SEP-2017 04:54, No significant change was found Referred By: Charlotte Herzog Electronically Signed By:NETO BRIAN
[2021-07-14] MEDS: Piperacillin Sodium/Tazobactam 3.375 GM in 0.9 % Sodium Chloride 50 ML IV ×4 (04:17→20:26)
[2021-07-14] MEDS: ondansetron HCL 4 MG/2 ML VIAL IVPUSH ×2 (05:29→20:25)
[2021-07-14 07:44] LABS: Glucose, Whole Blood 125 mg/dL (60-115)
[2021-07-14] MEDS: 0.9 % Sodium Chloride 1,000 ML 60 ML IVCONT ×2 (08:48→23:07)
[2021-07-14] MEDS: lisinopriL 10 MG TABLET PO (08:48)
[2021-07-14] MEDS: Insulin Glargine,Hum.rec.anlog 100 UNIT/ML 10 ML VIAL 8 UNIT SUBCUT (08:48)
[2021-07-14] MEDS: Heparin Sodium,Porcine 5,000 UNIT/ML VIAL 5000 UNIT SUBCUT ×2 (08:48→20:28)
[2021-07-14] MEDS: Anastrozole 1 MG TABLET PO (08:49)
[2021-07-14] MEDS: Docusate Sodium 100 MG CAPSULE PO ×2 (08:49→20:29)
[2021-07-14 11:28] LABS: Glucose, Whole Blood 120 mg/dL (60-115)
--- NOTE | 2021-07-14 11:41 | PM.PNGS ---
Subjective Subjective Date of Service: 07/14/21 Interval history: Not much of an appetite. Having intermittent nausea. Had a bowel movement today. Still having moderate incisional pain improved with medication. Physical Exam Vital Signs: Vital Signs: Last Vital Signs Temp 98.1 F 07/14/21 07:19 Pulse 86 07/14/21 08:48 Resp 20 07/14/21 07:19 BP 147/75 H 07/14/21 08:48 Pulse Ox 95 07/14/21 07:19 Body Mass Index 45.6 Const: General: cooperative, no acute distress and alert Resp: Effort & Inspection: normal respiratory effort Auscultation: clear to auscultation bilaterally Cardio: Rate: regular rate Rhythm: regular rhythm GI: Other: Soft, nondistended, bowel sounds active. Incisions are clean and well approximated. THU drain right upper quadrant draining serosanguineous fluid. Skin: Other: Normal color, warm and dry Procedures Date of Service Date of Service: 07/14/21 Progress Note: A&P Assessment and plan (1) Acute cholecystitis: Status: Acute (2) Newly diagnosed diabetes: Status: Acute (3) S/P cholecystectomy: Status: Acute Assessment and Plan: 66-year-old female presenting with acute cholecystitis and new onset diabetes mellitus, now day 3 post open cholecystectomy for a gangrenous cholecystitis. Has some nausea today, improved with ondansetron. Continue IV fluids. Increase activity. New onset diabetes, continue routine insulin and sliding scale coverage per hospitalist service. On diabetic diet. Fall Risk Details Current Medications: Current Medications Generic Name Dose Route Start Last Admin Trade Name Freq PRN Reason Stop Dose Admin Anastrozole 1 mg 07/12/21 09:00 07/14/21 08:49 Anastrozole 1 Mg Tablet PO 1 mg DAILY VIVIANE Administration Dextrose 25 gm 07/10/21 15:40 Dextrose 50 % 25 Gm/50 Ml Vial IVPUSH Q15M PRN per Hypoglycemia Standing Ord. Protocol Docusate Sodium 100 mg 07/13/21 21:00 07/14/21 08:49 Docusate Sodium 100 Mg Capsule PO 100 mg BID VIVIANE Administration Glucose 15 gm 07/10/21 15:40 Glucose Gel 15 Gm Gel..Gram. PO Q15M PRN per Hypoglycemia Standing Ord. Protocol Heparin Sodium (Porcine) 5,000 unit 07/12/21 10:00 07/14/21 08:48 Heparin Sodium,Porcine 5,000 Unit/Ml Vial SUBCUT 5,000 unit Q12H VIVIANE Administration Piperacillin Sod/Tazobactam 50 mls @ 100 mls/hr 07/10/21 15:00 07/14/21 09:47 Sod 3.375 gm/ Sodium Chloride IV Infused Q6H VIVIANE Infusion Acetaminophen 1,000 mg in 100 mls @ 400 mls/hr 07/11/21 17:43 07/14/21 05:58 Ofirmev IV Infused Q6H VIVIANE Infusion Sodium Chloride 1,000 mls @ 60 mls/hr 07/13/21 17:30 07/14/21 08:48 Ns IVCONT 60 mls/hr .[id number] VIVIANE Administration Insulin Glargine 8 unit 07/12/21 13:20 07/14/21 08:48 Insulin Glargine,Hum.Rec.Anlog 100 Unit/Ml 10 Ml Vial SUBCUT 8 unit DAILY [facility] Administration Insulin Human Lispro 0 unit 07/10/21 16:30 07/14/21 07:43 Insulin Lispro 100 Unit/Ml 3 Ml Vial SUBCUT Not Given QIDACHS [facility] Protocol Lisinopril 10 mg 07/11/21 09:00 07/14/21 08:48 Lisinopril 10 Mg Tablet PO 10 mg DAILY [facility] Administration Protocol Morphine Sulfate 3 mg 07/13/21 09:20 07/13/21 15:36 Morphine Sulfate 4 Mg/Ml Cartridge IVPUSH 3 mg Q3H PRN Administration Pain, Severe (Pain Scale 7-10) Protocol Naloxone HCl 0.2 mg 07/11/21 17:43 Naloxone Hcl 0.4 Mg/Ml Vial IVPUSH Q2M PRN Excessive sedation or RR < 8 Ondansetron HCl 4 mg 07/10/21 15:05 07/14/21 05:29 Ondansetron Hcl 4 Mg/2 Ml Vial IVPUSH 4 mg Q8H PRN Administration nausea Oxycodone HCl 10 mg 07/13/21 15:29 Oxycodone Hcl Immed Release 5 Mg Tablet PO Q4H PRN Pain, Moderate (Pain Scale 4-6 Pharmacy Consult 1 each 07/10/21 15:44 Consult Rx Perform Med Rec MISCELLANE ONCE PRN Consult order Sodium Chloride 3 ml 07/10/21 16:00 07/14/21 08:49 0.9 % Sodium Chloride Flush 3 Ml Syringe IVFLUSH Not Given QSHIFT VIVIANE Time Spent With Patient Time: Total time spent is greater than 50% in coordination of care (as documented) at patient's floor/unit and/or counseling patient: Time with patient: 15 - 24 minutes Quality Stroke Does the patient have a stroke diagnosis?: No VTE Prior VTE?: No VTE Risk Level:: Medical - moderate - high VTE Device Contraindication: N/A - Device Ordered VTE Drug Contraindication: N/A - Med Ordered
--- NOTE | 2021-07-14 12:34 | HO.PM.IMPN ---
Subjective Subjective Date of Service: 07/14/21 Interval History: the patient was seen and evaluated this morning pain is better controlled this morning Tolerating diet some nausea reported Denies any fever, chills or shortness of breath No reported other overnight events. Systemic review: No fever, chills but complaining of pain No chest pain, palpitation No shortness of breath or coughing Surgical site pain, nausea No urinary symptoms No any rash or wounds Physical Exam Vital Signs: Vital Signs: Last Vital Signs Temp 98.6 F 07/14/21 11:42 Pulse 94 07/14/21 11:42 Resp 18 07/14/21 11:42 BP 163/80 H 07/14/21 11:42 Pulse Ox 95 07/14/21 11:42 Body Mass Index 45.6 Const: Other: Constitutional : Alert, oriented, obese Neck : Normal inspection, Supple Cardiovascular : RRR, S1 S2, no lower extremity edema Respiratory : Good bilateral air entry, no crackles, wheezes or rhonchi Gastrointestinal: soft, lax, decrease bowel sounds, surgical site pain, small amount of drainage noted Skin : Warm, Dry Neurological : Alert & oriented x3, No focal deficit Objective Data Active Medications Anastrozole (Anastrozole 1 Mg Tablet) 1 mg PO DAILY [facility] Last Admin: 07/14/21 08:49 Dose: 1 mg Documented by: ADRIÁN Dextrose (Dextrose 50 % 25 Gm/50 Ml Vial) 25 gm IVPUSH Q15M PRN; Protocol PRN Reason: per Hypoglycemia Standing Ord. Docusate Sodium (Docusate Sodium 100 Mg Capsule) 100 mg PO BID [facility] Last Admin: 07/14/21 08:49 Dose: 100 mg Documented by: ADRIÁN Glucose (Glucose Gel 15 Gm Gel..Gram.) 15 gm PO Q15M PRN; Protocol PRN Reason: per Hypoglycemia Standing Ord. Heparin Sodium (Porcine) (Heparin Sodium,Porcine 5,000 Unit/Ml Vial) 5,000 unit SUBCUT Q12H [facility] Last Admin: 07/14/21 08:48 Dose: 5,000 unit Documented by: ADRIÁN Piperacillin Sod/Tazobactam (Sod 3.375 gm/ Sodium Chloride) 50 mls @ 100 mls/hr IV Q6H [facility] Last Infusion: 07/14/21 09:47 Dose: 0 mls/hr Documented by: ADRIÁN Acetaminophen (Ofirmev) 1,000 mg in 100 mls @ 400 mls/hr IV Q6H [facility] Last Infusion: 07/14/21 12:31 Dose: 0 mls/hr Documented by: ADRIÁN Sodium Chloride (Ns) 1,000 mls @ 60 mls/hr IVCONT .[id number] [facility] Last Admin: 07/14/21 08:48 Dose: 60 mls/hr Documented by: ADRIÁN Insulin Glargine (Insulin Glargine,Hum.Rec.Anlog 100 Unit/Ml 10 Ml Vial) 8 unit SUBCUT DAILY [facility] Last Admin: 07/14/21 08:48 Dose: 8 unit Documented by: ADRIÁN Insulin Human Lispro (Insulin Lispro 100 Unit/Ml 3 Ml Vial) 0 unit SUBCUT QIDACHS [facility]; Protocol Last Admin: 07/14/21 11:45 Dose: Not Given Documented by: ADRIÁN Non-Admin Reason: No Insulin Coverage Morphine Sulfate (Morphine Sulfate 4 Mg/Ml Cartridge) 3 mg IVPUSH Q3H PRN; Protocol PRN Reason: Pain, Severe (Pain Scale 7-10) Last Admin: 07/13/21 15:36 Dose: 3 mg Documented by: COTEMA Naloxone HCl (Naloxone Hcl 0.4 Mg/Ml Vial) 0.2 mg IVPUSH Q2M PRN PRN Reason: Excessive sedation or RR < 8 Ondansetron HCl (Ondansetron Hcl 4 Mg/2 Ml Vial) 4 mg IVPUSH Q8H PRN PRN Reason: nausea Last Admin: 07/14/21 05:29 Dose: 4 mg Documented by: PAVITHRA Oxycodone HCl (Oxycodone Hcl Immed Release 5 Mg Tablet) 10 mg PO Q4H PRN PRN Reason: Pain, Moderate (Pain Scale 4-6 Pharmacy Consult (Consult Rx Perform Med Rec) 1 each MISCELLANE ONCE PRN PRN Reason: Consult order Sodium Chloride (0.9 % Sodium Chloride Flush 3 Ml Syringe) 3 ml IVFLUSH QSHIFT [facility] Last Admin: 07/14/21 08:49 Dose: Not Given Documented by: ADRIÁN Non-Admin Reason: IV Running Labs CBC & Chem 7: 07/13/21 05:47 07/13/21 05:47 Labs: Laboratory Results - last 24 hr 07/13/21 07/13/21 07/14/21 16:18 20:28 07:23 POC Glucose 120 H 152 H 125 H 07/14/21 11:23 POC Glucose 120 H Assessment and Plan (1) Newly diagnosed diabetes: Status: Acute (2) S/P cholecystectomy: Status: Acute (3) Elevated blood pressure reading: Status: Acute Assessment and Plan: 66-year-old woman admitted by General surgery for acute cholecystitis. Acute cholecystitis. Post cholecystectomy day 1 Surgical team following Pain management Leukocytosis. Secondary to acute cholecystitis Continue Zosyn Uncontrolled diabetes Newly diagnosed diabetes type 2 HbA1c of 11.4 Continue Sliding scale Start Lantus insulin 8 units Will need outpatient follow-up with Endocrinology hypertension not taking any medication currently Continue to monitor DVT prophylaxis mechanical compression boots Quality Stroke Does the patient have a stroke diagnosis?: No VTE Prior VTE?: No VTE Risk Level:: Medical - moderate - high VTE Device Contraindication: N/A - Device Ordered VTE Drug Contraindication: N/A - Med Ordered
[2021-07-14 15:59] LABS: Glucose, Whole Blood 131 mg/dL (60-115)
[2021-07-14 20:02] LABS: Glucose, Whole Blood 147 mg/dL (60-115)
[2021-07-14] MEDS: Morphine Sulfate 4 MG/ML CARTRIDGE 3 MG IVPUSH (20:28)
[2021-07-15] VITALS (8 sets, daily range): BP systolic 129–169; BP diastolic 69–92; PULSE 85–102; RESP 16–20; TEMP 36.3–37; O2SAT 90–97
[2021-07-15] MEDS: Piperacillin Sodium/Tazobactam 3.375 GM in 0.9 % Sodium Chloride 50 ML IV ×4 (03:34→20:55)
[2021-07-15 05:43] LABS: Hematocrit 37.1 % (37-47); Hemoglobin 12.1 g/dl (12.0-16.0); Mean Corpuscular HGB Conc 32.6 g/dl (31.0-35.0); Mean Corpuscular Hemoglobin 26.9 pg (27.0-33.0); Mean Corpuscular Volume 82.6 fL (80-98); Mean Platelet Volume 10.1 fL (9.4-12.3); Platelet Count 301 X10*3/uL (160-400); Red Blood Count 4.49 X10*6/uL (4.20-5.50); Red Cell Distribution Width 13.6 % (11.0-16.0); White Blood Count 9.7 X10*3/uL (4.8-10.8)
[2021-07-15 05:57] LABS: Alanine Aminotransferase 131 U/L (0-31); Albumin Level 2.8 g/dL (3.5-5.0); Alkaline Phosphatase 146 U/L (39-117); Anion Gap 15 (12-20); Aspartate Amino Transferase 82 U/L (5-31); Bilirubin Direct 0.4 mg/dL (0.0-0.5); Bilirubin Total 0.7 mg/dL (0.0-1.0); Blood Urea Nitrogen 6 mg/dL (9-16); Carbon Dioxide 25 mmol/L (22-29); Chloride 104 mmol/L (96-108); Creatinine Clr Calc Pharmacy 114.2; Estimated Glomerular Filt Rate > 60; Glucose Fasting 123 mg/dL (60-99); Potassium 3.5 mmol/L (3.3-5.1); Sodium 140 mmol/L (135-145); Total Protein 5.3 g/dL (6.5-8.0)
[2021-07-15 07:25] LABS: Glucose, Whole Blood 116 mg/dL (60-115)
[2021-07-15] MEDS: Docusate Sodium 100 MG CAPSULE PO ×2 (09:39→20:59)
[2021-07-15] MEDS: lisinopriL 5 MG TABLET 15 MG PO (09:39)
[2021-07-15] MEDS: 0.9 % Sodium Chloride Flush 3 ML SYRINGE IVFLUSH ×3 (09:39→20:57)
[2021-07-15] MEDS: Morphine Sulfate 4 MG/ML CARTRIDGE 3 MG IVPUSH (09:39)
[2021-07-15] MEDS: Insulin Glargine,Hum.rec.anlog 100 UNIT/ML 10 ML VIAL 8 UNIT SUBCUT (09:40)
[2021-07-15] MEDS: Heparin Sodium,Porcine 5,000 UNIT/ML VIAL 5000 UNIT SUBCUT ×2 (09:40→21:00)
[2021-07-15] MEDS: Anastrozole 1 MG TABLET PO (09:43)
--- NOTE | 2021-07-15 11:34 | PM.PNGS ---
Subjective Subjective Date of Service: 07/15/21 Interval history: Feeling better. Still having intermittent nausea, but improved. Tolerating diet. Physical Exam Vital Signs: Vital Signs: Last Vital Signs Temp 97.7 F 07/15/21 08:00 Pulse 85 07/15/21 09:39 Resp 18 07/15/21 09:39 BP 169/90 H 07/15/21 09:39 Pulse Ox 96 07/15/21 08:00 Body Mass Index 45.6 Laboratory Results - last 24 hr 07/14/21 07/14/21 07/15/21 15:54 19:58 04:40 WBC 9.7 RBC 4.49 Hgb 12.1 Hct 37.1 MCV 82.6 MCH 26.9 L MCHC 32.6 RDW 13.6 Plt Count 301 MPV 10.1 Absolute Nucleated RBC 0.000 Nucleated RBC % (a uto) 0.0 Sodium Potassium Chloride Carbon Dioxide Anion Gap BUN Creatinine Estim Creat Clear Calc Estimated GFR POC Glucose 131 H 147 H Fasting Glucose Calcium Total Bilirubin Direct Bilirubin AST ALT Alkaline Phosphata se Total Protein Albumin 07/15/21 07/15/21 04:40 07:07 WBC RBC Hgb Hct MCV MCH MCHC RDW Plt Count MPV Absolute Nucleated RBC Nucleated RBC % (a uto) Sodium 140 Potassium 3.5 Chloride 104 Carbon Dioxide 25 Anion Gap 15 BUN 6 L D Creatinine 0.62 Estim Creat Clear Calc 114.2 Estimated GFR > 60 POC Glucose 116 H Fasting Glucose 123 H Calcium 8.0 L Total Bilirubin 0.7 Direct Bilirubin 0.4 AST 82 H ALT 131 H Alkaline Phosphata se 146 H Total Protein 5.3 L Albumin 2.8 L Const: General: cooperative, no acute distress and alert Resp: Effort & Inspection: normal respiratory effort Auscultation: clear to auscultation bilaterally Cardio: Rate: regular rate Rhythm: regular rhythm GI: Other: Round, soft, nondistended, bowel sounds active. Incisions clean dry and intact. THU drainage serosanguineous. Procedures Date of Service Date of Service: 07/15/21 Progress Note: A&P Assessment and plan (1) Newly diagnosed diabetes: Status: Acute (2) S/P cholecystectomy: Status: Acute (3) Acute cholecystitis: Status: Acute Assessment and Plan: 66-year-old female now postop day 4 following open cholecystectomy. She is continuing to improve clinically. She still is experiencing some nausea but decreasing. No acute changes noted on cardiogram yesterday. Continue to increase activity as tolerated. THU drainage has been diminishing. Drain removed today. New diagnosis of diabetes mellitus. Blood sugar control has been good on current regimen. Sliding scale coverage was not needed past 24 hours. Fall Risk Details Current Medications: Current Medications Generic Name Dose Route Start Last Admin Trade Name Florentinoq PRN Reason Stop Dose Admin Anastrozole 1 mg 07/12/21 09:00 07/15/21 09:43 Anastrozole 1 Mg Tablet PO 1 mg DAILY VIVIANE Administration Dextrose 25 gm 07/10/21 15:40 Dextrose 50 % 25 Gm/50 Ml Vial IVPUSH Q15M PRN per Hypoglycemia Standing Ord. Protocol Docusate Sodium 100 mg 07/13/21 21:00 07/15/21 09:39 Docusate Sodium 100 Mg Capsule PO 100 mg BID VIVIANE Administration Glucose 15 gm 07/10/21 15:40 Glucose Gel 15 Gm Gel..Gram. PO Q15M PRN per Hypoglycemia Standing Ord. Protocol Heparin Sodium (Porcine) 5,000 unit 07/12/21 10:00 07/15/21 09:40 Heparin Sodium,Porcine 5,000 Unit/Ml Vial SUBCUT 5,000 unit Q12H VIVIANE Administration Piperacillin Sod/Tazobactam 50 mls @ 100 mls/hr 07/10/21 15:00 07/15/21 10:28 Sod 3.375 gm/ Sodium Chloride IV Infused Q6H VIVIANE Infusion Insulin Glargine 8 unit 07/12/21 13:20 07/15/21 09:40 Insulin Glargine,Hum.Rec.Anlog 100 Unit/Ml 10 Ml Vial SUBCUT 8 unit DAILY VIVIANE Administration Insulin Human Lispro 0 unit 07/10/21 16:30 07/15/21 07:28 Insulin Lispro 100 Unit/Ml 3 Ml Vial SUBCUT Not Given QIDACHS [facility] Protocol Lisinopril 15 mg 07/14/21 12:34 07/15/21 09:39 Lisinopril 5 Mg Tablet PO 15 mg DAILY VIVIANE Administration Protocol Morphine Sulfate 3 mg 07/13/21 09:20 07/15/21 09:39 Morphine Sulfate 4 Mg/Ml Cartridge IVPUSH 3 mg Q3H PRN Administration Pain, Severe (Pain Scale 7-10) Protocol Naloxone HCl 0.2 mg 07/11/21 17:43 Naloxone Hcl 0.4 Mg/Ml Vial IVPUSH Q2M PRN Excessive sedation or RR < 8 Ondansetron HCl 4 mg 07/10/21 15:05 07/14/21 20:25 Ondansetron Hcl 4 Mg/2 Ml Vial IVPUSH 4 mg Q8H PRN Administration nausea Oxycodone HCl 10 mg 07/13/21 15:29 Oxycodone Hcl Immed Release 5 Mg Tablet PO Q4H PRN Pain, Moderate (Pain Scale 4-6 Pharmacy Consult 1 each 07/10/21 15:44 Consult Rx Perform Med Rec MISCELLANE ONCE PRN Consult order Sodium Chloride 3 ml 07/10/21 16:00 07/15/21 09:39 0.9 % Sodium Chloride Flush 3 Ml Syringe IVFLUSH 3 ml QSHIFT VIVIANE Administration Time Spent With Patient Time: Total time spent is greater than 50% in coordination of care (as documented) at patient's floor/unit and/or counseling patient: Time with patient: 15 - 24 minutes Quality Stroke Does the patient have a stroke diagnosis?: No VTE Prior VTE?: No VTE Risk Level:: Medical - moderate - high VTE Device Contraindication: N/A - Device Ordered VTE Drug Contraindication: N/A - Med Ordered
[2021-07-15 12:05] LABS: Glucose, Whole Blood 152 mg/dL (60-115)
[2021-07-15] MEDS: Insulin Lispro 100 UNIT/ML 3 ML VIAL SUBCUT ×2 (12:15→20:59)
[2021-07-15 16:10] LABS: Glucose, Whole Blood 134 mg/dL (60-115)
[2021-07-15 20:00] LABS: Glucose, Whole Blood 173 mg/dL (60-115)
[2021-07-16] MEDS: Piperacillin Sodium/Tazobactam 3.375 GM in 0.9 % Sodium Chloride 50 ML IV (02:35)
[2021-07-16 07:15] VITALS: BP 133/75; PULSE 94; RESP 20; TEMP 37.3; O2SAT 94
[2021-07-16 07:55] LABS: Glucose, Whole Blood 126 mg/dL (60-115)
[2021-07-16 09:33] VITALS: BP 133/75; PULSE 94
[2021-07-16] MEDS: Heparin Sodium,Porcine 5,000 UNIT/ML VIAL 5000 UNIT SUBCUT ×2 (09:33→20:23)
[2021-07-16] MEDS: lisinopriL 5 MG TABLET 15 MG PO (09:33)
[2021-07-16] MEDS: Anastrozole 1 MG TABLET PO (09:33)
[2021-07-16] MEDS: 0.9 % Sodium Chloride Flush 3 ML SYRINGE IVFLUSH ×3 (09:33→20:28)
[2021-07-16] MEDS: Docusate Sodium 100 MG CAPSULE PO ×2 (09:33→20:22)
[2021-07-16] MEDS: Insulin Glargine,Hum.rec.anlog 100 UNIT/ML 10 ML VIAL 10 UNIT SUBCUT (09:34)
--- NOTE | 2021-07-16 09:38 | P.PNGS_ITS ---
Subjective Subjective Date of Service: 07/16/21 <Elma Miramontes PA-C - Last Filed: 07/16/21 09:41> 07/16/21 <Ziggy Pan MD - Last Filed: 07/16/21 11:19> Interval history: Feels much better this morning. Mild nausea but able to tolerate breakfast. Did not sleep well. WAnts to go home. <Elma Miramontes PA-C - Last Filed: 07/16/21 09:41> Physical Exam Vital Signs: Vital Signs: Last Vital Signs Temp 99.2 F 07/16/21 07:15 Pulse 94 07/16/21 09:33 Resp 20 07/16/21 07:15 BP 133/75 07/16/21 09:33 Pulse Ox 94 07/16/21 07:15 Body Mass Index 45.6 <UMM Long Last Filed: 07/16/21 09:41> Const: General: comfortable, no acute distress and alert <Elma Miramontes PA-C - Last Filed: 07/16/21 09:41> Orientation/consciousness: patient oriented x3 <Elma Miramontes PA-C - Last Filed: 07/16/21 09:41> Limitations: no limitations <Elma Miramontes PA-C - Last Filed: 07/16/21 09:41> Resp: Effort & Inspection: normal respiratory effort <Elma Miramontes PA-C - Last Filed: 07/16/21 09:41> GI: Inspection: No distended and Yes incision (clean) <Elma Miramontes PA-C - Last Filed: 07/16/21 09:41> Palpation (GI): Soft to palpation and Tenderness to palpation present (GI) (mild, incisional) <UMM Long Last Filed: 07/16/21 09:41> Percussion: Yes normal to percussion <UMM Long Last Filed: 07/16/21 09:41> Skin: General skin exam: no rashes or lesions noted <UMM Long Last Filed: 07/16/21 09:41> Neuro: General: patient oriented x3 <Elma Miramontes PA-C - Last Filed: 07/16/21 09:41> Procedures Date of Service Date of Service: 07/16/21 <Elma Miramontes PA-C - Last Filed: 07/16/21 09:41> Progress Note: A&P Assessment and plan (1) Newly diagnosed diabetes: Status: Acute <Elma Miramontes PA-C - Last Filed: 07/16/21 09:41> (2) S/P cholecystectomy: Status: Acute <Elma Miramontes PA-C - Last Filed: 07/16/21 09:41> Assessment and Plan: Looks well Good GI function Abdomen soft Incision healing well THU drain removed yesterday Plan to discharge home tomorrow Seen and examined -agree with DAMARI Miramontes <Ziggy Pan MD - Last Filed: 07/16/21 11:19> (3) Acute cholecystitis: Status: Acute <Elma Miramontes PA-C - Last Filed: 07/16/21 09:41> Assessment and Plan: 66-year-old female now postop day 5 following open cholecystectomy.? She is continuing to improve clinically and doing well post op.? She still is experiencing some nausea but decreasing.?THU drain removed over weekend. Anticipate ready for discharge to home tomorrow. New diagnosis of diabetes mellitus.? Blood sugar control has been good on current regimen.? Will discuss with hospitalist discharge regimen. Offered VNA but patient refused. F/u with center medical director, PCP. <Elma Miramontes PA-C - Last Filed: 07/16/21 09:41> Fall Risk Details Current Medications: Current Medications Generic Name Dose Route Start Last Admin Trade Name Freq PRN Reason Stop Dose Admin Anastrozole 1 mg 07/12/21 09:00 07/16/21 09:33 Anastrozole 1 Mg Tablet PO 1 mg DAILY VIVIANE Administration Dextrose 25 gm 07/10/21 15:40 Dextrose 50 % 25 Gm/50 Ml Vial IVPUSH Q15M PRN per Hypoglycemia Standing Ord. Protocol Docusate Sodium 100 mg 07/13/21 21:00 07/16/21 09:33 Docusate Sodium 100 Mg Capsule PO 100 mg BID VIVIANE Administration Glucose 15 gm 07/10/21 15:40 Glucose Gel 15 Gm Gel..Gram. PO Q15M PRN per Hypoglycemia Standing Ord. Protocol Heparin Sodium (Porcine) 5,000 unit 07/12/21 10:00 07/16/21 09:33 Heparin Sodium,Porcine 5,000 Unit/Ml Vial SUBCUT 5,000 unit Q12H VIVIANE Administration Insulin Glargine 10 unit 07/16/21 09:15 07/16/21 09:34 Insulin Glargine,Hum.Rec.Anlog 100 Unit/Ml 10 Ml Vial SUBCUT 10 unit DAILY VIVIANE Administration Insulin Human Lispro 0 unit 07/10/21 16:30 07/16/21 07:21 Insulin Lispro 100 Unit/Ml 3 Ml Vial SUBCUT Not Given QIDACHS [facility] Protocol Lisinopril 15 mg 07/14/21 12:34 07/16/21 09:33 Lisinopril 5 Mg Tablet PO 15 mg DAILY VIVIANE Administration Protocol Morphine Sulfate 3 mg 07/13/21 09:20 07/15/21 09:39 Morphine Sulfate 4 Mg/Ml Cartridge IVPUSH 3 mg Q3H PRN Administration Pain, Severe (Pain Scale 7-10) Protocol Naloxone HCl 0.2 mg 07/11/21 17:43 Naloxone Hcl 0.4 Mg/Ml Vial IVPUSH Q2M PRN Excessive sedation or RR < 8 Ondansetron HCl 4 mg 07/10/21 15:05 07/14/21 20:25 Ondansetron Hcl 4 Mg/2 Ml Vial IVPUSH 4 mg Q8H PRN Administration nausea Oxycodone HCl 10 mg 07/13/21 15:29 Oxycodone Hcl Immed Release 5 Mg Tablet PO Q4H PRN Pain, Moderate (Pain Scale 4-6 Pharmacy Consult 1 each 07/10/21 15:44 Consult Rx Perform Med Rec MISCELLANE ONCE PRN Consult order Sodium Chloride 3 ml 07/10/21 16:00 07/16/21 09:33 0.9 % Sodium Chloride Flush 3 Ml Syringe IVFLUSH 3 ml QSHIFT [facility] Administration <Elma Miramontes PA-C - Last Filed: 07/16/21 09:41> Time Spent With Patient Time: Total time spent is greater than 50% in coordination of care (as documented) at patient's floor/unit and/or counseling patient: <Elma Miramontes PA-C - Last Filed: 07/16/21 09:41> Time with patient: 15 - 24 minutes <Elma Miramontes PA-C - Last Filed: 07/16/21 09:41> Quality Stroke Does the patient have a stroke diagnosis?: No <Elma Miramontes PA-C - Last Filed: 07/16/21 09:41> VTE Prior VTE?: No <Elma Miramontes PA-C - Last Filed: 07/16/21 09:41> VTE Risk Level:: Medical - moderate - high <Elma Miramontes PA-C - Last Filed: 07/16/21 09:41> VTE Device Contraindication: N/A - Device Ordered <Elma Miramontes PA-C - Last Filed: 07/16/21 09:41> VTE Drug Contraindication: N/A - Med Ordered <Elma Miramontes PA-C - Last Filed: 07/16/21 09:41>
[2021-07-16 11:18] VITALS: BP 146/84; PULSE 90; RESP 18; TEMP 37; O2SAT 95
[2021-07-16 12:02] LABS: Glucose, Whole Blood 141 mg/dL (60-115)
[2021-07-16] MEDS: oxyCODONE HCl Immed Release 5 MG TABLET 10 MG PO ×2 (12:47→20:22)
--- NOTE | 2021-07-16 13:31 | HO.PM.IMPN ---
Subjective Subjective Date of Service: 07/16/21 Interval History: the patient was seen and evaluated this morning pain is better controlled this morning Tolerating diet some nausea reported No reported other overnight events. Systemic review: No fever, chills or pain No chest pain, palpitation No shortness of breath or coughing Drain was removed No urinary symptoms No any rash or wounds Physical Exam Vital Signs: Vital Signs: Last Vital Signs Temp 98.6 F 07/16/21 11:18 Pulse 90 07/16/21 11:18 Resp 18 07/16/21 11:18 BP 146/84 H 07/16/21 11:18 Pulse Ox 95 07/16/21 11:18 Body Mass Index 45.6 Const: Other: Constitutional : Alert, oriented, obese Neck : Normal inspection, Supple Cardiovascular : RRR, S1 S2, no lower extremity edema Respiratory : Good bilateral air entry, no crackles, wheezes or rhonchi Gastrointestinal: soft, lax, no tenderness Skin : Warm, Dry Neurological : Alert & oriented x3, No focal deficit Objective Data Active Medications Anastrozole (Anastrozole 1 Mg Tablet) 1 mg PO DAILY [facility] Last Admin: 07/16/21 09:33 Dose: 1 mg Documented by: ADRIÁN Dextrose (Dextrose 50 % 25 Gm/50 Ml Vial) 25 gm IVPUSH Q15M PRN; Protocol PRN Reason: per Hypoglycemia Standing Ord. Docusate Sodium (Docusate Sodium 100 Mg Capsule) 100 mg PO BID [facility] Last Admin: 07/16/21 09:33 Dose: 100 mg Documented by: ADRIÁN Glucose (Glucose Gel 15 Gm Gel..Gram.) 15 gm PO Q15M PRN; Protocol PRN Reason: per Hypoglycemia Standing Ord. Heparin Sodium (Porcine) (Heparin Sodium,Porcine 5,000 Unit/Ml Vial) 5,000 unit SUBCUT Q12H [facility] Last Admin: 07/16/21 09:33 Dose: 5,000 unit Documented by: ADRIÁN Insulin Glargine (Insulin Glargine,Hum.Rec.Anlog 100 Unit/Ml 10 Ml Vial) 10 unit SUBCUT DAILY [facility] Last Admin: 07/16/21 09:34 Dose: 10 unit Documented by: ADRIÁN Insulin Human Lispro (Insulin Lispro 100 Unit/Ml 3 Ml Vial) 0 unit SUBCUT QIDACHS [facility]; Protocol Last Admin: 07/16/21 12:11 Dose: Not Given Documented by: ADRIÁN Non-Admin Reason: No Insulin Coverage Lisinopril (Lisinopril 5 Mg Tablet) 15 mg PO DAILY [facility]; Protocol Last Admin: 07/16/21 09:33 Dose: 15 mg Documented by: ADRIÁN Morphine Sulfate (Morphine Sulfate 4 Mg/Ml Cartridge) 3 mg IVPUSH Q3H PRN; Protocol PRN Reason: Pain, Severe (Pain Scale 7-10) Last Admin: 07/15/21 09:39 Dose: 3 mg Documented by: ADRIÁN Naloxone HCl (Naloxone Hcl 0.4 Mg/Ml Vial) 0.2 mg IVPUSH Q2M PRN PRN Reason: Excessive sedation or RR < 8 Ondansetron HCl (Ondansetron Hcl 4 Mg/2 Ml Vial) 4 mg IVPUSH Q8H PRN PRN Reason: nausea Last Admin: 07/14/21 20:25 Dose: 4 mg Documented by: PARISA Oxycodone HCl (Oxycodone Hcl Immed Release 5 Mg Tablet) 10 mg PO Q4H PRN PRN Reason: Pain, Moderate (Pain Scale 4-6 Last Admin: 07/16/21 12:47 Dose: 10 mg Documented by: MAEVE Pharmacy Consult (Consult Rx Perform Med Rec) 1 each MISCELLANE ONCE PRN PRN Reason: Consult order Sodium Chloride (0.9 % Sodium Chloride Flush 3 Ml Syringe) 3 ml IVFLUSH QSHIFT [facility] Last Admin: 07/16/21 09:33 Dose: 3 ml Documented by: ADRIÁN Labs CBC & Chem 7: 07/15/21 04:40 07/15/21 04:40 Labs: Laboratory Results - last 24 hr 07/15/21 07/15/21 07/16/21 16:05 19:50 07:14 POC Glucose 134 H 173 H 126 H 07/16/21 11:16 POC Glucose 141 H Microbiology Microbiology Results: Microbiology 07/10/21 12:12 Blood Culture - Final Blood - Venous No growth after 5 days. 07/10/21 12:05 Blood Culture - Final Blood - Venous No growth after 5 days. Assessment and Plan (1) Newly diagnosed diabetes: Status: Acute (2) S/P cholecystectomy: Status: Acute Assessment and Plan: 66-year-old woman admitted by General surgery for acute cholecystitis. Acute cholecystitis. Surgical team following Pain management Uncontrolled diabetes Newly diagnosed diabetes type 2 HbA1c of 11.4 Continue Sliding scale Lantus 10 units daily The patient was prescribed insulin lispro and Lantus along with metformin for discharge Diabetes education done Will need outpatient follow-up with PCP and Endocrinology hypertension Start small dose lisinopril Continue to monitor DVT prophylaxis mechanical compression boots Quality Stroke Does the patient have a stroke diagnosis?: No VTE Prior VTE?: No VTE Risk Level:: Medical - moderate - high VTE Device Contraindication: N/A - Device Ordered VTE Drug Contraindication: N/A - Med Ordered
[2021-07-16 15:32] VITALS: BP 164/90; PULSE 99; RESP 17; TEMP 36.4; O2SAT 95
[2021-07-16 16:20] LABS: Glucose, Whole Blood 128 mg/dL (60-115)
--- NOTE | 2021-07-16 16:54 | MHC.CM.PN ---
PER MULTIDISCIPLINARY ROUNDS ANTICIPATE D/C TOMORROW Friday07/17/21 W/NEW DIABETES AND INSULIN LISPRO AND LANTUS, CM TO FOLLOW-UP W/[facility] TP DETERMINE WHICH INSULIN/SUPPLIES ARE COVERED IN AM.
[2021-07-16 19:18] VITALS: BP 166/87; PULSE 101; RESP 18; TEMP 36.4; O2SAT 94
[2021-07-16 20:13] LABS: Glucose, Whole Blood 187 mg/dL (60-115)
[2021-07-16] MEDS: Insulin Lispro 100 UNIT/ML 3 ML VIAL SUBCUT (20:24)
[2021-07-16 23:05] VITALS: BP 136/75; PULSE 92; RESP 18; TEMP 36.3; O2SAT 96
[2021-07-17 03:25] VITALS: BP 166/78; PULSE 96; RESP 18; TEMP 36.3; O2SAT 95
[2021-07-17] MEDS: 0.9 % Sodium Chloride Flush 3 ML SYRINGE IVFLUSH (07:08)
[2021-07-17 07:31] VITALS: BP 118/66; PULSE 95; RESP 17; TEMP 36.7; O2SAT 95
[2021-07-17 07:31] LABS: Glucose, Whole Blood 122 mg/dL (60-115)
[2021-07-17] MEDS: Anastrozole 1 MG TABLET PO (08:03)
[2021-07-17] MEDS: Docusate Sodium 100 MG CAPSULE PO (08:03)
[2021-07-17] MEDS: lisinopriL 5 MG TABLET 15 MG PO (08:03)
[2021-07-17] MEDS: Insulin Glargine,Hum.rec.anlog 100 UNIT/ML 10 ML VIAL 10 UNIT SUBCUT (08:04)
--- NOTE | 2021-07-17 08:32 | PM.PNGS ---
Subjective Subjective Date of Service: 07/17/21 <Elma Miramontes PA-C - Last Filed: 07/17/21 08:36> 07/18/21 <Ziggy Pan MD - Last Filed: 07/18/21 11:18> Interval history: Feels much better this morning. Denies pain. Denies nausea. Tolerating diet. Wants to go home. <Elma Miramontes PA-C - Last Filed: 07/17/21 08:36> Physical Exam Vital Signs: Vital Signs: Last Vital Signs Temp 98.0 F 07/17/21 07:31 Pulse 95 07/17/21 07:31 Resp 17 07/17/21 07:31 BP 118/66 07/17/21 07:31 Pulse Ox 95 07/17/21 07:31 Body Mass Index 45.6 <UMM Long Last Filed: 07/17/21 08:36> Const: General: comfortable, no acute distress and alert <Elma Miramontes PA-C - Last Filed: 07/17/21 08:36> Orientation/consciousness: patient oriented x3 <Elma Miramontes PA-C - Last Filed: 07/17/21 08:36> Limitations: no limitations <Elma Miramontes PA-C - Last Filed: 07/17/21 08:36> Resp: Effort & Inspection: normal respiratory effort <Elma Miramontes PA-C - Last Filed: 07/17/21 08:36> GI: Inspection: No distended and Yes incision (clean) <UMM Long Last Filed: 07/17/21 08:36> Palpation (GI): Soft to palpation <UMM Long Last Filed: 07/17/21 08:36> Skin: General skin exam: no rashes or lesions noted <UMM Long Last Filed: 07/17/21 08:36> Neuro: General: patient oriented x3 <UMM Long Last Filed: 07/17/21 08:36> Procedures Date of Service Date of Service: 07/17/21 <UMM Long Last Filed: 07/17/21 08:36> Progress Note: A&P Assessment and plan (1) Newly diagnosed diabetes: Status: Acute <Elma Miramontes PA-C - Last Filed: 07/17/21 08:36> (2) S/P cholecystectomy: Status: Acute <Elma Miramontes PA-C - Last Filed: 07/17/21 08:36> Assessment and Plan: She feels well Denies significant complaints Good GI functions Abdomen soft Okay to DC home Discharge instructions given Seen and examined - agree with DAMARI Miramontes <Ziggy Pan MD - Last Filed: 07/18/21 11:18> (3) Acute cholecystitis: Status: Acute <Elma Miramontes PA-C - Last Filed: 07/17/21 08:36> Assessment and Plan: 66-year-old female now postop day 6 following open cholecystectomy.? She is continuing to improve clinically and doing well post op.?THU drain removed over weekend. Doing well and ready for discharge to home. F/u in office with Dr. Pan. New diagnosis of diabetes mellitus.? Blood sugar control has been good on current regimen.? Insulin regimen as ordered by Hospitalist service. Offered VNA but patient refused due to her dogs. She has been educated thoroughly by staff. 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 <Elma Miramontes PA-C - Last Filed: 07/17/21 08:36> Fall Risk Details Current Medications: Current Medications Generic Name Dose Route Start Last Admin Trade Name Freq PRN Reason Stop Dose Admin Anastrozole 1 mg 07/12/21 09:00 07/17/21 08:03 Anastrozole 1 Mg Tablet PO 1 mg DAILY VIVIANE Administration Dextrose 25 gm 07/10/21 15:40 Dextrose 50 % 25 Gm/50 Ml Vial IVPUSH Q15M PRN per Hypoglycemia Standing Ord. Protocol Docusate Sodium 100 mg 07/13/21 21:00 07/17/21 08:03 Docusate Sodium 100 Mg Capsule PO 100 mg BID VIVIANE Administration Glucose 15 gm 07/10/21 15:40 Glucose Gel 15 Gm Gel..Gram. PO Q15M PRN per Hypoglycemia Standing Ord. Protocol Heparin Sodium (Porcine) 5,000 unit 07/12/21 10:00 07/16/21 20:23 Heparin Sodium,Porcine 5,000 Unit/Ml Vial SUBCUT 5,000 unit Q12H [facility] Administration Insulin Glargine 10 unit 07/16/21 09:15 07/17/21 08:04 Insulin Glargine,Hum.Rec.Anlog 100 Unit/Ml 10 Ml Vial SUBCUT 10 unit DAILY VIVIANE Administration Insulin Human Lispro 0 unit 07/10/21 16:30 07/17/21 07:32 Insulin Lispro 100 Unit/Ml 3 Ml Vial SUBCUT Not Given QIDACHS [facility] Protocol Lisinopril 15 mg 07/14/21 12:34 07/17/21 08:03 Lisinopril 5 Mg Tablet PO 15 mg DAILY [facility] Administration Protocol Morphine Sulfate 3 mg 07/13/21 09:20 07/15/21 09:39 Morphine Sulfate 4 Mg/Ml Cartridge IVPUSH 3 mg Q3H PRN Administration Pain, Severe (Pain Scale 7-10) Protocol Naloxone HCl 0.2 mg 07/11/21 17:43 Naloxone Hcl 0.4 Mg/Ml Vial IVPUSH Q2M PRN Excessive sedation or RR < 8 Ondansetron HCl 4 mg 07/10/21 15:05 07/14/21 20:25 Ondansetron Hcl 4 Mg/2 Ml Vial IVPUSH 4 mg Q8H PRN Administration nausea Oxycodone HCl 10 mg 07/13/21 15:29 07/16/21 20:22 Oxycodone Hcl Immed Release 5 Mg Tablet PO 10 mg Q4H PRN Administration Pain, Moderate (Pain Scale 4-6 Pharmacy Consult 1 each 07/10/21 15:44 Consult Rx Perform Med Rec MISCELLANE ONCE PRN Consult order Sodium Chloride 3 ml 07/10/21 16:00 07/17/21 07:08 0.9 % Sodium Chloride Flush 3 Ml Syringe IVFLUSH 3 ml QSHIFT [facility] Administration <Elma Miramontes PA-C - Last Filed: 07/17/21 08:36> Time Spent With Patient Time: Total time spent is greater than 50% in coordination of care (as documented) at patient's floor/unit and/or counseling patient: <Elma Miramontes PA-C - Last Filed: 07/17/21 08:36> Time with patient: 15 - 24 minutes <Elma Miramontes PA-C - Last Filed: 07/17/21 08:36> Quality Stroke Does the patient have a stroke diagnosis?: No <Elma Miramontes PA-C - Last Filed: 07/17/21 08:36> VTE Prior VTE?: No <Elma Miramontes PA-C - Last Filed: 07/17/21 08:36> VTE Risk Level:: Medical - moderate - high <Elma Miramontes PA-C - Last Filed: 07/17/21 08:36> VTE Device Contraindication: N/A - Device Ordered <Elma Miramontes PA-C - Last Filed: 07/17/21 08:36> VTE Drug Contraindication: N/A - Med Ordered <Elma Miramontes PA-C - Last Filed: 07/17/21 08:36>
--- NOTE | 2021-07-17 11:09 | MHC.CM.PN ---
CM SPOKE W/PT'S PHARMACY AND [facility] REGARDING COVERAGE OF INSULIN AND SUPPLIES PT IS A NEW DIABETIC, PT GIVEN COUPON FOR FREE ONETOUCH GLUCOMETER COVERED GLUCOMETER IS ON BACK ORDER AND PHARMACY UNSURE OF WHEN IT WILL BE IN STOCK, PT HAS HNE AND HUMALOG AND LANTUS EACH HAVE A $10 COPAY FOR MONTHS SUPPLY AND PER [facility] ALL MEDS & INSULIN SUPPLIES COME TO $69 INCLUDING FREE GLUCOMETER. PHARMACY REQUESTED SLIDING SCALE AND FREQUENCY OF HUMALOG SCRIPT, HOSPITALIST NOTIFIED. CM DID ENCOURAGE PT TO ACCEPT VNA FOR TEACHING HOWEVER PT CONT'S TO REFUSE HOME SERVICES D/T DOG AT HOME AND NOT BEING HOME TO MANAGE DOG D/T WORK SCHEDULE. CM DID CONTACT [facility] WHO REPORTS THEY WILL FOLLOW-UP W/PT TODAY TO GIVE EXTRA SUPPORT. PT DISCHARGED HOME SELF-CARE W/NEW DIABETES/INSULIN, WAS AT BEDSIDE AND TRANSPORTED PT.
--- NOTE | 2021-07-19 10:09 | P.DS_ITS ---
DS: Providers Provider Date of Service: 07/17/21 Date of admission: 07/10/21 15:06 Primary care physician: Avani Ledesma NP Consults: 07/10/21 15:07 Consult to Hospitalist Routine Consulting Provider: Hospitalist Reason For Exam: elevated blood sugar, HTN, obesity DS: Diagnosis Discharge Diagnosis (1) Newly diagnosed diabetes: Status: Acute (2) S/P cholecystectomy: Status: Acute (3) Acute cholecystitis: Status: Acute DS: Summary Hospital Course Hospital Course: BRIEF HPI: Libertad Chávez is a 66 year old female with morbid obesity, prediabetes, who came to the emergency room today because abdominal pain.? She says this started yesterday around 4:30 in the morning which is about 36 hours ago.? She describes this mostly in the mid part her abdomen but now, she says she is tender on the right upper quadrant. She says that the pain had been persistent since yesterday showed she decided to come to the emergency room.? She denies any fever or chills.? She does describe a little bit of nausea today.? She denies any vomiting. She does not recall having similar episodes in the past. Her only other main complaint is her chronic knee pain, right more than the left because of her arthritis.? She has difficulty walking because of this and uses a cane. HOSPITAL COURSE: The patient was admitted to the surgical service for treatment of acute calculous cholecystitis. She was started on IV zosyn, IVF and kept NPO. It was recommended to proceed with laparoscopic cholecystectomy and possible open cholecystectomy.?She was added onto the OR schedule for the following day. The patient had a significantly elevated glucose and is prediabetic. A hospitalist consult was obtained for further evaluation and treatment and management of her medical comorbidities. On 07/11/21, a laparoscopic attempted converted to open cholecystectomy was performed by Dr. Pan without complication. A THU drain was placed intraoperatively. The patient tolerated the procedure well, was recovered in PACU and admitted back to the medical/surgical floor for observation. The patient had a slow but uncomplicated recovery course. She was continued on IV zosyn during her stay given the significant inflammation and gallbladder gangrene and completed an 8 day course. Her diet was slowly advanced as tolerated. She had some difficulty with post operative nausea which gradually improved during her stay. She had good pain control with PO and IV anagelsics as needed. She was ambulated. Her abdomen remained benign with appropriate post op tenderness and clean incision. Her THU drain remained serosanguineous and was removed prior to discharge. Her SBP was elevated post operatively and she was started on lisinopril 15mg PO daily with better control. For her elevated POC, her HgB A1c was checked and was 11.4. She was started on ISS and lantus subq which was gradually increased until she had good POC control on Lantus 10 units daily subq every morning. She was also started on metformin 850 mg daily prior to d/c. She was thoroughly educated on the diagnosis and treatment and management of diabetes mellitus during her s sushant. She was seen by nutrition and educated on diabetic diet. VNA services was offered and refused by the patient and . She is to follow up with her PCP and endocrinology upon discharge. Status at Discharge Functional status at discharge: independent ambulation Overall status at discharge: patient is progressing back to baseline Time Spent with Patient Time attestation: Total time spent providing and/or coordinating discharge services: Discharge coordination time: Greater than 30 minutes Quality: Stroke Does the patient have a stroke diagnosis?: No Physical Exam Vital Signs: Vital Signs: Last Vital Signs Temp 98.0 F 07/17/21 07:31 Pulse 95 07/17/21 07:31 Resp 17 07/17/21 07:31 BP 118/66 07/17/21 07:31 Pulse Ox 95 07/17/21 07:31 Body Mass Index 45.6 DS: Data Data Completed and Pending Pending studies at discharge: Pending at discharge 07/11/21 13:58 Surgical [PTH] Routine Discharge Plan Discharge Patient Disposition: Home, Self-Care Discharge Diagnosis: acute cholecystitis, diabetes mellitus Referrals: Avani Ledesma NP [Primary Care Provider] - 1 Week Ziggy Pan MD [Physician] - 1 Week Yenny Macario AGNP-C [Nurse Practitioner] - 1 Week (newly diagnosed diabetes mellitus) Discharge Medications: New docusate sodium 100 mg Capsule 100 mg PO BID PRN (Reason: constipation) Qty: 30 RF: 0 lisinopril 5 mg Tablet 15 mg PO DAILY 30 Days Qty: 90 RF: 0 Lantus Solostar U-100 Insulin 100 unit/mL (3 mL) insulin pen 10 unit subcut QAM 30 Days Qty: 3 RF: 0 alcohol swabs Pads, Medicated 1 pad topical QID 30 Days RF: 0 (DME) blood-glucose meter [FreeStyle Lite Meter] Kit See Rx Instructions .ROUTE .MEDSUPPLY Qty: 1 RF: 0 (DME) FreeStyle Lite Strips Strip See Rx Instructions .ROUTE .MEDSUPPLY Qty: 100 RF: 0 (DME) lancets Misc See Rx Instructions .ROUTE .MEDSUPPLY Qty: 100 RF: 0 (DME) needle (disp) 32 gauge 32 gauge x 5/16 needle See Rx Instructions .ROUTE .MEDSUPPLY Qty: 100 RF: 0 metformin 850 mg tablet 850 mg PO DAILY Qty: 30 RF: 1 insulin lispro [Humalog KwikPen Insulin] 100 unit/mL insulin pen 1 sliding scale dose subcut USEASDIRECTD Qty: 3 RF: 2 Continued anastrozole 1 mg tablet 1 tab PO DAILY RF: 0 acetaminophen 325 mg Tablet 650 mg PO Q4H PRN (Reason: Pain (Scale Score 1-3)) RF: 0 Discharge Orders: Discharge Order (Routine); Ordered 07/17/21 Ordered By: Elma Miramontes Diet: diabetic diet Activity on Discharge: No heavy lifting Stand Alone Forms: Patient Portal Discharge page Activity Restrictions/Additional Instructions: If the incision area is tender, you may apply an ice pack for short intervals (No more than 20 minutes on, followed by at least 20 minutes off). Do not apply heat. Do not use creams, lotions, or topical antibiotics unless instructed to do so by your surgeon. These can cause infection or allergic reaction. Ok to shower (no baths). You have bina closing your incision and these will be removed approximately 10-14 days after surgery. NO HEAVY LIFTING (>10lbs). Follow up in office with Dr. Pan. ([phone]) Call Your Doctor If: -Your temperature exceeds 101.5? F -You experience excessive pain or swelling -You have an unexpected reaction to medication -You have excessive bleeding -You experience continued vomiting/nausea -Your incision begins to separate -Your incision shows signs of infection such as increased redness, swelling, excessive pain, drainage (light blood or clear fluid is normal) or heat Care Plan Goals: Return to baseline health and gradual return to activity following recovery period. Better control of blood sugars. Health Concerns: S/p open cholecystectomy, newly diagnosed diabetes mellitus Plan of Treatment: Discharge to home, f/u in office with Dr. Pan, PCP, endocrinology Assessment: Improved Discharge Date/Time: 07/17/21 10:03
== END 2021-07-17 10:03 | disposition home or self-care (01) | DRG 263 ==
LOC: HO.ED 13:21 → HO.EDOVER 15:25 → HO.S3 17:03
PROVIDERS: Nurse Practitioner Acute Care; Physician Assistant Surgical; Student in an Organized Health Care Education/Training Program; Surgery; Admitting Provider Surgery; Emergency Provider Emergency Medicine; PCP Nurse Practitioner; Visit Provider Surgery
PROC: 0FT44ZZ Resection of Gallbladder, Percutaneous Endoscopic Approach (ICD-10-PCS; CPT 47562; principal; 2021-07-11 13:00)
DX: K81.0 Acute cholecystitis (principal); K82.A1 Gangrene of gallbladder in cholecystitis; D72.829 Elevated white blood cell count, unspecified; E66.01 Morbid (severe) obesity due to excess calories; E11.65 Type 2 diabetes mellitus with hyperglycemia; I10 Essential (primary) hypertension; Z20.822 Contact with and (suspected) exposure to COVID-19; Z68.42 Body mass index [BMI] 45.0-49.9, adult; Z79.4 Long term (current) use of insulin; Z79.899 Other long term (current) drug therapy
CPT/HCPCS: 36415; 74177; 74181; 76705; 80048; 80076; 81001; 82947; 83036; 83605; 83690; 85025; 85027; 86850; 86900; 86901; 87040; 87086; 87635; 88304; 93005; 96361; 96365; 99024; 99285; J0131; J0696; J1100; J1170; J2250; J2270; J2370; J2405; J2543; J3010; Q9967

== ENCOUNTER → 2021-07-25 08:57 | Outpatient (BNVA) | payer OTHER, SELFPAY | PROVIDERS: Visit Provider Surgery ==

== ENCOUNTER 2021-09-03 21:10 | Emergency (ER) | payer OTHER, SELFPAY ==
[2021-09-03 21:22] VITALS: BP 147/78; PULSE 93; RESP 18; TEMP 36.9; O2SAT 94; BMI 41.8
--- NOTE | 2021-09-03 22:03 | ED_ITS ---
HPI - General Adult General Chief complaint: Nausea/Vomiting/Diarrhea Stated complaint: uti? Time Seen by Provider: 09/03/21 21:50 Source: patient Mode of arrival: ambulatory Limitations: no limitations History of Present Illness HPI narrative: 66-year-old female here with complaints of burning and itching to the rectum for about 1 week with some occasional blood noted on the toilet paper after wiping. She tells me that she has alternating diarrhea and constipation since having her gallbladder out in July. Currently for the last 7 days she has had constipation with a lot of straining. No abdominal pain. No vomiting, fevers or chills. She tried preparation H once today at home with continued symptoms. She has an appointment with her primary for follow-up on Friday Related Data Home Medications Medication Instructions Recorded Confirmed acetaminophen 325 mg tablet 650 mg PO Q4H PRN 07/10/21 07/10/21 anastrozole 1 mg tablet 1 tab PO DAILY 07/10/21 07/10/21 Previous Rx's Medication Instructions Recorded alcohol swabs 1 pad TOPICAL QID 30 Days ea 07/16/21 blood sugar diagnostic (FreeStyle #100 ea 07/16/21 Lite Strips) blood-glucose meter (FreeStyle #1 ea 07/16/21 Lite Meter) docusate sodium 100 mg capsule 100 mg PO BID PRN #30 cap 07/16/21 insulin glargine 100 unit/mL (3 10 unit SUBCUT QAM 30 Days #3 ml 07/16/21 mL) subcutaneous pen (Lantus Solostar U-100 Insulin) lancets #100 ea 07/16/21 lisinopril 5 mg tablet 15 mg PO DAILY 30 Days #90 tab 07/16/21 metformin 850 mg tablet 850 mg PO DAILY #30 tab 07/16/21 needle (disp) 32 gauge 32 gauge x #100 ea 07/16/21 5/16 insulin lispro 100 unit/mL 1 sliding scale dose SUBCUT 07/17/21 subcutaneous pen (Humalog KwikPen USEASDIRECTD #3 ml (U-100) Insulin) docusate sodium 100 mg capsule 100 mg PO BID #60 cap 09/03/21 (Colace) hydrocortisone 2.5 % topical cream 1 appl ME BEDTIME PRN #30 g 09/03/21 with perineal applicator (Anusol-HC) Allergies Allergy/AdvReac Type Severity Reaction Status Date / Time No Known Allergies Allergy Verified 07/25/21 09:14 [No Known Allergies*] Review of Systems Review of Systems: Yes all other systems are reviewed and are negative Constitutional: Constitutional: Reports no additional constitutional complaints, Denies body ache(s), Denies chills, Denies fever(s), Denies headache (s) and Denies weakness Eyes: Eyes: Reports no additional eye complaints and Denies change in vision ENT: Reports system reviewed and no additional complaints, except as documented, Denies dizziness, Denies headache(s), Denies nasal congestion, Denies nasal discharge and Denies neck pain Cardiovascular: Cardiovascular: Reports no additional cardiovascular complaints, Denies chest pain, Denies leg edema and Denies dyspnea Respiratory: Respiratory: Reports no additional respiratory complaints, Denies cough and Denies dyspnea Gastrointestinal: Gastrointestinal: Reports no additional gastrointestinal complaints, Denies abdominal pain, Reports hematochezia (Only on toilet paper and not in stools), Denies diarrhea, Denies nausea and Denies vomiting Comments: + rectal itching and burning Genitourinary: Genitourinary: Reports no additional female genitourinary complaints and Denies urinary incontinence Musculoskeletal: Musculoskeletal: Reports no additional musculoskeletal complaints, Denies back pain, Denies arthralgias, Denies joint swelling, Denies neck pain, Denies numbness and Denies tingling Integumentary/Breasts: Skin/Breast: Reports system reviewed and no additional complaints, except as docu and Denies rash Neurologic: Reports system reviewed and no additional complaints, except as documented, Denies Abnormal speech present, Denies dizziness, Denies headache(s), Denies numbness, Denies tingling and Denies weakness [facility] Past Medical History Attestation statement: The following information was validated with the patient. Source: old records reviewed and nursing notes reviewed Medical History Breast cancer HTN (hypertension) Surgical History H/O lumpectomy History of laparoscopic cholecystectomy Status post laparoscopic cholecystectomy Social History Social History Household Members: Spouse Housing: House Do you presently have visiting nurse or other home services: No Patient Tobacco Use Status: Never used Tobacco Advance Directives: No Advance Directives Information Provided: No service: No Current occupational status: employed Physical Exam Vital Signs: Vital Signs: Last Vital Signs Temp 98.4 F 09/03/21 21:22 Pulse 93 09/03/21 21:22 Resp 16 09/03/21 22:10 BP 147/78 H 09/03/21 21:22 Pulse Ox 94 09/03/21 21:22 Body Mass Index 41.8 Const: General: cooperative, healthy appearing, comfortable and no acute distress Orientation/consciousness: patient oriented x3 Limitations: no limitations HENMT: Head: Yes normal to inspection Ears: hearing grossly normal bilaterally General nose exam: Normal external nose present Face and sinus: Yes normal facial exam Mouth: Normal oral and palatal mucosa present Throat: Yes posterior oropharynx normal Eyes: General: appearance normal, both eyes and all related structures Pupils: Equal, round and reactive pupils present Neck: Neck: Yes normal visual inspection Chest: Chest palpation & inspection: normal inspection of the chest Resp: Effort & Inspection: normal respiratory effort Auscultation: clear to auscultation bilaterally Cardio: Rate: regular rate Rhythm: regular rhythm Peripheral pulses: Peripheral pulses 2+ throughout GI: Inspection: Yes normal to inspection Palpation (GI): Soft to palpation and nontender Auscultation: normal bowel sounds Rectal Exam - Female: normal sphincter tone, External hemorrhoid(s) present, Internal hemorrhoid(s) present, hemorrhoids and tenderness (Mild) Back/Spine/Pelvis: Thoracic/Lumbar Spine: thoracic and lumbar spine normal to inspection Skin: General skin exam: no rashes or lesions noted Neuro: General: patient oriented x3, no focal motor deficits and normal sensa tion to monofilament Cranial nerves: Yes Equal, round and reactive pupils present Cognition (Neuro): normal cognition Speech: No Abnormal speech present Gait exam (Neuro): Normal gait present Motor exam (neuro): 5/5 motor strength present throughout Extrem: General: Yes normal to inspection Course Course Course Narrative: 66-year-old here with 1 week of constipation now with rectal itching and burning. Tried preparation H once at home with continued symptoms. Exam is consistent with hemorrhoid. Will treat with Anusol. Recommended Sitz baths. Avoiding constipation. Follow-up with primary care. Reviewed worrisome signs and symptoms of when to return to the emergency department. Comfortable discharge home. Medical Decision Making Medical Records Medical records reviewed: Yes I reviewed the patient's medical records. Lab Data Lab results reviewed: Yes I reviewed the patient's lab results. Discharge Plan Discharge Clinical Impression: Hemorrhoids Patient Disposition: Home, Self-Care Instructions: Hemorrhoids (ED) Additional Instructions: Sitx baths as discussed Avoid constipation. Increase fluids, fiber in diet Prescriptions: New docusate sodium [Colace] 100 mg capsule 100 mg PO BID Qty: 60 RF: 0 hydrocortisone [Anusol-HC] 2.5 % cream with perineal applicator 1 appl ME BEDTIME PRN (Reason: hemorrhoids) Qty: 30 RF: 0 No Action anastrozole 1 mg tablet 1 tab PO DAILY RF: 0 acetaminophen 325 mg Tablet 650 mg PO Q4H PRN (Reason: Pain (Scale Score 1-3)) RF: 0 docusate sodium 100 mg Capsule 100 mg PO BID PRN (Reason: constipation) Qty: 30 RF: 0 lisinopril 5 mg Tablet 15 mg PO DAILY 30 Days Qty: 90 RF: 0 Lantus Solostar U-100 Insulin 100 unit/mL (3 mL) insulin pen 10 unit subcut QAM 30 Days Qty: 3 RF: 0 alcohol swabs Pads, Medicated 1 pad topical QID 30 Days RF: 0 (DME) blood-glucose meter [FreeStyle Lite Meter] Kit See Rx Instructions .ROUTE .MEDSUPPLY Qty: 1 RF: 0 (DME) FreeStyle Lite Strips Strip See Rx Instructions .ROUTE .MEDSUPPLY Qty: 100 RF: 0 (DME) lancets Misc See Rx Instructions .ROUTE .MEDSUPPLY Qty: 100 RF: 0 (DME) needle (disp) 32 gauge 32 gauge x 5/16 needle See Rx Instructions .ROUTE .MEDSUPPLY Qty: 100 RF: 0 metformin 850 mg tablet 850 mg PO DAILY Qty: 30 RF: 1 insulin lispro [Humalog KwikPen Insulin] 100 unit/mL insulin pen 1 sliding scale dose subcut USEASDIRECTD Qty: 3 RF: 2 Referrals: Natty Calero MD [Primary Care Provider] - 2 days Interventions: ED Discharge Assessment Last Done: 09/03/21 22:10
[2021-09-03 22:10] VITALS: RESP 16
== END 2021-09-03 22:10 | disposition home or self-care (01) ==
PROVIDERS: Emergency Provider Emergency Medicine; PCP Internal Medicine
DX: K64.9 Unspecified hemorrhoids (principal); K59.00 Constipation, unspecified; I10 Essential (primary) hypertension
CPT/HCPCS: 99283; 99284